=== PATIENT | female | born 1965 | race American Indian/Alaskan Native ===

== ENCOUNTER 2020-03-25 11:14 | Inpatient (IN) | payer BC, OTHER ==
[2020-03-25] MEDS ORDERED: Metoclopramide 10 MG/2 ML SDV IVPUSH ONE (11:35)
[2020-03-25] MEDS ORDERED: Sodium Chloride 0.9% 1,000 ML IV ONE ×2 (11:35→18:17)
[2020-03-25] MEDS ORDERED: fentaNYL 100 MCG/2 ML SDV IVPUSH ONE ×2 (11:35→13:40)
[2020-03-25] MEDS: Sodium Chloride 0.9% 10 ML Syringe FLUSH PRN ×4 (11:41→23:56)
[2020-03-25 12:17] LABS: ANION GAP 17.2 mEq/L (7-13); CHLORIDE,CL 100 mmol/L (98-107); SODIUM,NA 140 mmol/L (136-145)
[2020-03-25] MEDS ORDERED: Iopamidol 612 MG/ML 100 ML Bottle IVPUSH ONE (12:28)
--- NOTE | 2020-03-25 12:37 | EDM.PDOC ---
ED HPI GENERAL MEDICAL PROBLEM - General Chief Complaint: Abdominal Pain Stated Complaint: ABDOMINAL PAIN Time Seen by Provider: 03/25/20 11:50 Source of Information: Reports: Patient, Family, RN, RN Notes Reviewed History Limitations: Reports: No Limitations - History of Present Illness INITIAL COMMENTS - FREE TEXT/NARRATIVE: Patient presents to ER with complaint of abdominal pain. Patient states she had right knee surgery on March 13, and has not had a good bowel movement since before the surgery date. Patient states she also has not eaten very well since the date of surgery, takes in more liquids. Patient states she has been up and ambulating around, but has been using opioids for pain control. Admits to fever and chills that began yesterday, nausea and vomiting that began this morning. Patient states the abdominal pain began the end of last week and has progressively gotten worse. Has used oijp-let-gobifte enemas with no results. Onset: Gradual Bilateral Lower Abdomen Pain Score (Numeric/FACES): 10 - Related Data Allergies Allergy/AdvReac Type Severity Reaction Status Date / Time codeine Allergy Nausea and Verified 03/25/20 14:54 Vomiting Home Meds: Home Meds traMADol HCl [Tramadol HCl] 1 tab PO Q8HR PRN 01/29/16 [History] Acetaminophen [Tylenol Extra Strength] 500 mg PO Q6HR PRN 03/25/20 [History] Aspirin [Christian Chewable] 81 mg PO DAILY 03/25/20 [History] Celecoxib 200 mg PO DAILY 03/25/20 [History] Ergocalciferol (Vitamin D2) [Vitamin D2] 50 mcg PO DAILY 03/25/20 [History] Pregabalin 150 mg PO DAILY 03/25/20 [History] Sennosides/Docusate Sodium [Docusate Sodium-Sennosides Tab] 1 each PO BID [History] oxyCODONE 5 mg PO TID PRN 03/25/20 [History] Past Medical History HEENT History: Reports: None Cardiovascular History: Reports: Other (See Below) Other Cardiovascular History: Borderline high blood pressure. 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 Open Reduc-ankle dislocation. Carpal tunnel release Neurological History: Reports: None Psychiatric History: Reports: None Endocrine/Metabolic History: Reports: Obesity/BMI 30+, Other (See Below) Other Endocrine/Metabolic History: Impaired fasting glucose Hematologic History: Reports: None Immunologic History: Reports: None Oncologic (Cancer) History: Reports: None Dermatologic History: Reports: None - Infectious Disease History Infectious Disease History: Reports: Other (See Below) Other Infectious Disease History: SOME KIND OF HEPATITIS - Past Surgical History GI Surgical History: Reports: Cholecystectomy, Colonoscopy, Other (See Below) ED ROS GENERAL - Review of Systems Review Of Systems: Comprehensive ROS is negative, except as noted in HPI. ED EXAM, GI/ABD - Physical Exam Exam: See Below Exam Limited By: No Limitations General Appearance: Alert, WD/WN, Moderate Distress Eyes: Bilateral: Normal Appearance, EOMI Ears: Normal External Exam, Hearing Grossly Normal Nose: Normal Inspection Throat/Mouth: Normal Inspection, Normal Voice, No Airway Compromise, Other (dry mucous membranes) Head: Atraumatic, Normocephalic Neck: Normal Inspection, Supple, Non-Tender, Full Range of Motion Respiratory/Chest: No Respiratory Distress, Lungs Clear, Normal Breath Sounds, No Accessory Muscle Use, Chest Non-Tender Cardiovascular: Normal Peripheral Pulses, Regular Rate, Rhythm, No Edema, No Gallop, No JVD, No Murmur, No Rub GI/Abdominal Exam: Soft, Distended, Tender, Abnormal Bowel Sounds (hypoactive) (Female) Exam: Deferred Rectal (Female) Exam: Deferred Back Exam: Normal Inspection, Full Range of Motion, NT Extremities: Normal Inspection, Normal Range of Motion, No Pedal Edema, Normal Capillary Refill, Leg Pain (right knee, recent replacement), Limited Range of Motion (right knee) Neurological: Alert, Oriented, CN II-XII Intact, Normal Cognition, Normal Gait, Normal Reflexes, No Motor/Sensory Deficits Psychiatric: Normal Affect, Normal Mood Skin Exam: Warm, Dry, Intact, Normal Color, No Rash, Wound/Incision (Right knee , wound covered with dressing that is not to be changed until next Tuesday, no drainage outside the dressing) Lymphatic: No Adenopathy Course - Vital Signs Last Recorded V/S: Last Vital Signs Temp 97.9 F 03/25/20 13:50 Pulse 74 03/25/20 13:50 Resp 16 03/25/20 13:50 BP 120/68 03/25/20 13:50 Pulse Ox 99 03/25/20 13:50 - Orders/Labs/Meds Orders: Active Orders 24 hr Category Date Time Status Peripheral IV Care [RC] . DIRECTED Care 03/25/20 11:35 Active CULTURE BLOOD [BC] Stat Lab 03/25/20 11:39 Received CULTURE BLOOD [BC] Stat Lab 03/25/20 12:13 Received REFLEX LACTIC ACID YES OR NO [CHEM] Routine Lab 03/25/20 12:23 Received UA RFX JEREMY AND CULT IF INDIC [URIN] Stat Lab 03/25/20 11:35 Ordered Sodium Chloride 0.9% [Normal Saline] 1,000 ml Med 03/25/20 13:45 Active IV ASDIRECTED Sodium Chloride 0.9% [Saline Flush] Med 03/25/20 11:35 Active 10 ml FLUSH ASDIRECTED PRN Blood Culture x2 Reflex Set [OM.PC] Stat Oth 03/25/20 11:34 Ordered Peripheral IV Insertion Adult [OM.PC] Stat Oth 03/25/20 11:34 Ordered Medication Orders Sodium Chloride (Normal Saline) 1,000 mls @ 300 mls/hr IV ASDIRECTED DELANEY Last Admin: 03/25/20 13:36 Dose: 300 mls/hr Sodium Chloride (Saline Flush) 10 ml FLUSH ASDIRECTED PRN PRN Reason: Keep Vein Open Last Admin: 03/25/20 11:41 Dose: 10 ml Labs: Laboratory Tests 03/25/20 03/25/20 03/25/20 Range/Units 11:39 11:39 11:39 WBC 29.4 H* (5.0-10.0) 10^3/uL RBC 4.39 (4.2-5.4) 10^6/uL Hgb 13.9 (12.0-16.0) g/dL Hct 40.4 (37.0-47.0) % MCV 92.0 (80-100) fL MCH 31.7 (27.0-34.0) pg MCHC 34.4 (33.0-35.0) g/dL Plt Count 547 H (150-450) 10^3/uL Neut % (Auto) 93.0 H (42.2-75.2) % Lymph % (Auto) 2.9 L (20.5-50.1) % [place] % (Auto) 3.9 (2-8) % Eos % (Auto) 0.0 L (1.0-3.0) % Baso % (Auto) 0.2 (0.0-1.0) % Sodium 140 (136-145) mmol/L Potassium 3.2 L (3.5-5.1) mmol/L Chloride 100 (98-107) mmol/L Carbon Dioxide 26 (21-32) mmol/L Anion Gap 17.2 H (7-13) mEq/L BUN 10 (7-18) mg/dL Creatinine 0.83 (0.55-1.02) mg/dL Est Cr Clr Drug Dosing 91.16 mL/min Estimated GFR (MDRD) > 60 BUN/Creatinine Ratio 12.0 (No establ ref range) Glucose 167 H (74-99) mg/dL Lactic Acid 2.5 H* (0.4-2.0) mmol/L Calcium 9.5 (8.5-10.1) mg/dL Total Bilirubin 2.5 H (0.2-1.0) mg/dL AST 20 (15-37) U/L ALT 28 (14-59) U/L Alkaline Phosphatase 109 (46-116) U/L Total Protein 7.4 (6.4-8.2) g/dL Albumin 3.6 (3.4-5.0) g/dL Globulin 3.8 Albumin/Globulin Ratio 0.9 Meds: Medications Generic Name Dose Route Start Last Admin Trade Name Freq PRN Reason Stop Dose Admin Sodium Chloride 1,000 mls @ 300 mls/hr 03/25/20 13:45 03/25/20 13:36 Normal Saline IV 300 mls/hr ASDIRECTED DELANEY Administration Sodium Chloride 10 ml 03/25/20 11:35 03/25/20 11:41 Saline Flush FLUSH 10 ml ASDIRECTED PRN Administration Keep Vein Open Discontinued Medications Generic Name Dose Route Start Last Admin Trade Name Freq PRN Reason Stop Dose Admin Fentanyl 100 mcg 03/25/20 11:35 03/25/20 11:45 Sublimaze IVPUSH 03/25/20 11:36 100 mcg ONETIME ONE Administration Fentanyl 100 mcg 03/25/20 13:40 03/25/20 13:48 Sublimaze IVPUSH 03/25/20 13:41 100 mcg ONETIME ONE Administration Sodium Chloride 1,000 mls @ 999 mls/hr 03/25/20 11:35 03/25/20 11:40 Normal Saline IV 03/25/20 12:35 999 mls/hr .BOLUS ONE Administration Piperacillin Sod/Tazobactam 100 mls @ 200 mls/hr 03/25/20 13:18 03/25/20 13: 34 Sod 3.375 gm/ Sodium Chloride IV 03/25/20 13:47 200 mls/hr ONETIME ONE Administration Iopamidol 100 ml 03/25/20 12:28 03/25/20 13:01 Isovue-300 (61%) IVPUSH 03/25/20 12:29 100 ml ONETIME ONE Administration Methylnaltrexone [place] 12 mg 03/25/20 13:51 03/25/20 14:13 Relistor SUBCUT 03/25/20 13:52 12 mg ONETIME ONE Administration Metoclopramide HCl 10 mg 03/25/20 11:35 03/25/20 11:45 Reglan IVPUSH 03/25/20 11:36 10 mg ONETIME ONE Administration - Radiology Interpretation Free Text/Narrative:: CT Abdomen/Pelvis with contrast: 1. Abnormal pericolonic inflammatory dirty peritoneal fat left lower quadrant associated with sigmoid diverticulitis. Minimal stool proximally in the distal descending left colon, there is large volume of fluid throughout the remaining proximal colon, no air-fluid levels. Suggest severe generalized ileus rather than mechanical bowel obstruction at this time. No inflammatory mass or abscess LLQ. 2. Surgical ring around the gastroesophageal juncture LUQ and intraperitoneal tube coursing to the subcutaneous pump, adjacent to the umbilicus, on the right. 3. No ascites or free intraperitoneal air. 4. Liver, stomach, spleen, pancreas, adrenal glands, and kidneys anatomically correct and unremarkable. 5. Normal caliber aortoiliac vessels. Osteopenia and hypertrophic marginal spondylosis spine. 6. No abdominal or pelvic mass lesion. No mesenteric or retroperitoneal lymphadenopathy. 7. Lung bases clear. Normal caliber abdominal aorta. No aneurysm or dissection. Occlusion: Acute sigmoid diverticulitis. See rad report - Re-Assessments/Exams Free Text/Narrative Re-Assessment/Exam: 03/25/20 13:55 Discussed patient case with Dr. Garza who agreed to admit the patient for acute inpatient admission. Departure - Departure Time of Disposition: 13:55 Disposition: Admitted As Inpatient 66 Condition: Fair Clinical Impression: Acute diverticulitis of intestine - Discharge Information *PRESCRIPTION DRUG MONITORING PROGRAM REVIEWED*: No *COPY OF PRESCRIPTION DRUG MONITORING REPORT IN PATIENT SHE[place]: No Sepsis Event Note (ED) - Evaluation Sepsis Screening Result: No Definite Risk - Focused Exam Vital Signs: Vital Signs Temp Pulse Resp BP Pulse Ox 03/25/20 13:50 97.9 F 74 16 120/68 99 03/25/20 12:30 97.8 F 75 18 119/65 99 03/25/20 11:47 96.7 F L 67 18 168/80 H 99 - My Orders Last 24 Hours: My Active Orders 03/25/20 11:34 Blood Culture x2 Reflex Set [OM.PC] Stat Peripheral IV Insertion Adult [OM.PC] Stat 03/25/20 11:35 Peripheral IV Care [RC] . DIRECTED UA RFX JEREMY AND CULT IF INDIC [URIN] Stat Sodium Chloride 0.9% [Saline Flush] 10 ml FLUSH ASDIRECTED PRN 03/25/20 11:39 CULTURE BLOOD [BC] Stat 03/25/20 12:13 CULTURE BLOOD [BC] Stat 03/25/20 12:23 REFLEX LACTIC ACID YES OR NO [CHEM] Routine 03/25/20 13:45 Sodium Chloride 0.9% [Normal Saline] 1,000 ml IV ASDIRECTED - Assessment/Plan Last 24 Hours: My Active Orders 03/25/20 11:34 Blood Culture x2 Reflex Set [OM.PC] Stat Peripheral IV Insertion Adult [OM.PC] Stat 03/25/20 11:35 Peripheral IV Care [RC] . DIRECTED UA RFX JEREMY AND CULT IF INDIC [URIN] Stat Sodium Chloride 0.9% [Saline Flush] 10 ml FLUSH ASDIRECTED PRN 03/25/20 11:39 CULTURE BLOOD [BC] Stat 03/25/20 12:13 CULTURE BLOOD [BC] Stat 03/25/20 12:23 REFLEX LACTIC ACID YES OR NO [CHEM] Routine 03/25/20 13:45 Sodium Chloride 0.9% [Normal Saline] 1,000 ml IV ASDIRECTED
[2020-03-25] MEDS ORDERED: Piperacillin/Tazobactam 3.375 GM in Sodium Chloride 0.9% 100 ML IV ONE (13:18)
--- NOTE | 2020-03-25 13:33 | CT ---
EXAMINATION: Abdomen Pelvis w Cont SEX: Female AGE: 55 years CLINICAL HISTORY: 55-year-old 268 pound female smoker with clinical question of bowel obstruction.? Previous bariatric surgery, cholecystectomy and recent knee surgery. Yesterday fever/chills and this morning nausea/vomiting this patient with abnormal elevated white blood cell count (WBC 29,400), lactic acid 2.9 and abdominal pain. Scan technique: Volume acquisition of data emergency unenhanced CT scan of the abdomen and pelvis obtained without oral contrast but during intravenous administration 100 cc nonionic Isovue contrast at 3 cc/s via injector while patient was lying supine on the Siemens multislice scanner [place], [place]. All data archived in the PACS system for storage, reformatting axial/sagittal/coronal planes and study. Interpretation: Abnormal. Acute SIGMOID DIVERTICULITIS with accompanying generalized ileus. 1. *Abnormal pericolonic inflammatory "dirty" peritoneal fat left lower quadrant associated with sigmoid diverticulitis. Minimal stool proximally in the distal descending left colon there is large volume of fluid throughout the remaining proximal colon (no air-fluid levels). Suggest severe generalized ileus rather than mechanical bowel obstruction at this time. No inflammatory mass or abscess LLQ. 2. Surgical ring around the gastroesophageal juncture LUQ and intraperitoneal tube coursing to the subcutaneous "pump", adjacent to the umbilicus, on the right. 3. No ascites or free intraperitoneal air. 4. Liver, stomach, spleen, pancreas, adrenal glands and kidneys anatomically correct i.e. unremarkable. 5. Normal caliber aortoiliac vessels. Osteopenia and hypertrophic marginal spondylosis spine. 6. No abdominal or pelvic mass lesion. No mesenteric or retroperitoneal lymphadenopathy. 7. Lung bases clear. Normal caliber abdominal aorta. No aneurysm or dissection. CONCLUSION: Acute sigmoid diverticulitis.
[2020-03-25] MEDS ORDERED: Sodium Chloride 0.9% 1,000 ML IV SCH (13:45)
[2020-03-25] MEDS ORDERED: Methylnaltrexone 12 MG/0.6 ML SDV SUBCUT ONE (13:51)
[2020-03-25] MEDS ORDERED: Acetaminophen 500 MG Tab PO PRN (15:07)
--- NOTE | 2020-03-25 15:14 | PCM.HP ---
H&P History of Present Illness - General Date of Service: 03/25/20 Admit Problem/Dx: Admission Diagnosis/Problem Admission Diagnosis/Problem Acute diverticulitis of intestine Source of Information: Patient, Family, Provider - History of Present Illness Initial Comments - Free Text/Narative: Patient is a 55-year-old female with medical history significant for morbid obesity status post lap band, osteoarthritis status post knee replacement surgeries, prior history of impaired fasting glucose, borderline high blood pressure who presented to the ED with complaints of abdominal pain. Patient reports that she had right knee surgery on March 13 and has been on pain medications from the time. States that she has not had a bowel movement since before the surgery. Reports that on Tuesday and Tuesday she took an enema and had bowel movements. called the nurse line and was instructed to purchase magnesium citrate. States that she took the medications but has not been able to have a bowel movement. Reports nonbilious and nonbloody emesis this morning. Has had 3 episodes of emesis overall since her pain started on Tuesday. Reports the pain is constant, sharp, and located in the lower abdominal quadrant. Denies radiation. She reports shaking chills and cold sweats, and right knee swelling secondary to surgery. Denies any abdominal trauma. She denies chest pain, shortness of breath, dysuria, hematuria, headache, vision changes, or any new symptoms. Bilateral Lower Abdomen Pain Score (Numeric/FACES): 10 - Related Data Allergies/Adverse Reactions: Allergies Allergy/AdvReac Type Severity Reaction Status Date / Time codeine Allergy Nausea and Verified 03/25/20 14:54 Vomiting Home Medications: Home Meds traMADol HCl [Tramadol HCl] 1 tab PO Q8HR PRN 01/29/16 [History] Acetaminophen [Tylenol Extra Strength] 500 mg PO Q6HR PRN 03/25/20 [History] Aspirin [Christian Chewable] 81 mg PO DAILY 03/25/20 [History] Celecoxib 200 mg PO DAILY 03/25/20 [History] Ergocalciferol (Vitamin D2) [Vitamin D2] 50 mcg PO DAILY 03/25/20 [History] Ondansetron [Zofran] 8 mg PO Q8H PRN 03/25/20 [History] Pregabalin 150 mg PO DAILY 03/25/20 [History] Sennosides/Docusate Sodium [Docusate Sodium-Sennosides Tab] 1 each PO BID [History] oxyCODONE 5 mg PO TID PRN 03/25/20 [History] Past Medical History HEENT History: Reports: None Cardiovascular History: Reports: Other (See Below) Other Cardiovascular History: Borderline high blood pressure. 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 Open Reduc-ankle dislocation. Carpal tunnel release Neurological History: Reports: None Psychiatric History: Reports: None Endocrine/Metabolic History: Reports: Obesity/BMI 30+, Other (See Below) Other Endocrine/Metabolic History: Impaired fasting glucose Hematologic History: Reports: None Immunologic History: Reports: None Oncologic (Cancer) History: Reports: None Dermatologic History: Reports: None - Infectious Disease History Infectious Disease History: Reports: Other (See Below) Other Infectious Disease History: SOME KIND OF HEPATITIS - Past Surgical History GI Surgical History: Reports: Cholecystectomy, Colonoscopy, Other (See Below) Social & Family History - Family History Family Medical History: Noncontributory - Tobacco Use Smoking Status *Q: Current Every Day Smoker Years of Tobacco use: 40 Packs/Tins Daily: 0.5 Used Tobacco, but Quit: No - Caffeine Use Caffeine Use: Reports: None - Recreational Drug Use Recreational Drug Use: No H&P Review of Systems - Review of Systems: Review Of Systems: Comprehensive ROS is negative, except as noted in HPI. Exam - Exam Exam: See Below - Vital Signs Vital Signs: Last Vital Signs Temp 97.9 F 03/25/20 13:50 Pulse 74 03/25/20 13:50 Resp 16 03/25/20 13:50 BP 120/68 03/25/20 13:50 Pulse Ox 99 03/25/20 13:50 Weight: 267 lb 12.8 oz - Exam General: Alert, Oriented, Cooperative, Severe Distress HEENT: Conjunctiva Clear, EOMI Neck: Supple, Trachea Midline Lungs: Clear to Auscultation, Normal Respiratory Effort Cardiovascular: Regular Rhythm, Tachycardia GI/Abdominal Exam: Tender (in the mid to left lower abdominal quadrant. ) Extremities: Normal Inspection, Normal Range of Motion, Non-Tender, No Pedal Edema Skin: Warm, Dry, Intact Neuro Extensive - Mental Status: Alert, Oriented x3, Normal Mood/Affect Psychiatric: Alert, Normal Affect, Normal Mood - Patient Data Lab Results Last 24 hrs: Laboratory Results - last 24 hr 03/25/20 03/25/20 03/25/20 Range/Units 11:39 11:39 11:39 WBC 29.4 H* (5.0-10.0) 10^3/uL RBC 4.39 (4.2-5.4) 10^6/uL Hgb 13.9 (12.0-16.0) g/dL Hct 40.4 (37.0-47.0) % MCV 92.0 (80-100) fL MCH 31.7 (27.0-34.0) pg MCHC 34.4 (33.0-35.0) g/dL Plt Count 547 H (150-450) 10^3/uL Neut % (Auto) 93.0 H (42.2-75.2) % Lymph % (Auto) 2.9 L (20.5-50.1) % [place] % (Auto) 3.9 (2-8) % Eos % (Auto) 0.0 L (1.0-3.0) % Baso % (Auto) 0.2 (0.0-1.0) % Sodium 140 (136-145) mmol/L Potassium 3.2 L (3.5-5.1) mmol/L Chloride 100 (98-107) mmol/L Carbon Dioxide 26 (21-32) mmol/L Anion Gap 17.2 H (7-13) mEq/L BUN 10 (7-18) mg/dL Creatinine 0.83 (0.55-1.02) mg/dL Est Cr Clr Drug Dosing 91.16 mL/min Estimated GFR (MDRD) > 60 BUN/Creatinine Ratio 12.0 (No establ ref range) Glucose 167 H (74-99) mg/dL Lactic Acid 2.5 H* (0.4-2.0) mmol/L Calcium 9.5 (8.5-10.1) mg/dL Total Bilirubin 2.5 H (0.2-1.0) mg/dL AST 20 (15-37) U/L ALT 28 (14-59) U/L Alkaline Phosphatase 109 (46-116) U/L Total Protein 7.4 (6.4-8.2) g/dL Albumin 3.6 (3.4-5.0) g/dL Globulin 3.8 Albumin/Globulin Ratio 0.9 Result Diagrams: 03/25/20 11:39 03/25/20 11:39 - Problem List (1) Ileus SNOMED Code(s): 315353923 ICD Code: K56.7 - ILEUS, UNSPECIFIED Status: Acute Current Visit: Yes (2) Hypokalemia SNOMED Code(s): 75611952 ICD Code: E87.6 - HYPOKALEMIA Status: Acute Current Visit: Yes (3) Sepsis SNOMED Code(s): 99108664 ICD Code: A41.9 - SEPSIS, UNSPECIFIED ORGANISM Status: Acute Current Visit: Yes (4) Lactic acidosis SNOMED Code(s): 45534990 ICD Code: E87.2 - ACIDOSIS Status: Acute Current Visit: Yes (5) Acute diverticulitis of intestine SNOMED Code(s): 365613056 ICD Code: K57.92 - DVTRCLI OF INTEST, PART UNSP, W/O PERF OR ABSCESS W/O BLEED Status: Acute Current Visit: No Problem List Initiated/Reviewed/Updated: Yes Orders Last 24hrs: Active Orders 24 hr Category Date Time Status Admission Diagnosis [ADT] Stat ADT 03/25/20 13:51 Ordered Patient Status [ADT] Routine ADT 03/25/20 13:51 Active Ambulate [RC] ASDIRECTED Care 03/25/20 15:00 Active Intake and Output [RC] QSHIFT Care 03/25/20 15:01 Active Oxygen Therapy [RC] PRN Care 03/25/20 15:00 Active Peripheral IV Care [RC] . DIRECTED Care 03/25/20 11:35 Active VTE/DVT Education [RC] PER UNIT ROUTINE Care 03/25/20 15:00 Active Vital Signs [RC] Q4H Care 03/25/20 15:00 Active Nothing per Oral Now Diet [DIET] Diet 03/25/20 Lunch Active BASIC METABOLIC PANEL,BMP [CHEM] AM Lab 03/26/20 05:11 Ordered CBC W/O DIFF,HEMOGRAM [HEME] AM Lab 03/26/20 05:11 Ordered CULTURE BLOOD [BC] Stat Lab 03/25/20 11:39 Received CULTURE BLOOD [BC] Stat Lab 03/25/20 12:13 Received HEPATIC FUNCTION PANEL,HFP [CHEM] AM Lab 03/26/20 05:11 Ordered LACTIC ACID [CHEM] Q4H Lab 03/25/20 17:00 Ordered LACTIC ACID [CHEM] Q4H Lab 03/25/20 21:00 Ordered MAGNESIUM [CHEM] AM Lab 03/26/20 05:11 Ordered PHOSPHORUS [CHEM] AM Lab 03/26/20 05:11 Ordered REFLEX LACTIC ACID YES OR NO [CHEM] Routine Lab 03/25/20 12:23 Received UA RFX JEREMY AND CULT IF INDIC [URIN] Stat Lab 03/25/20 11:35 Ordered Acetaminophen [Tylenol Extra Strength] Med 03/25/20 15:07 Ordered 500 mg PO Q6HR PRN Acetaminophen [Tylenol] Med 03/25/20 15:00 Ordered 650 mg PO Q4H PRN Aspirin Med 03/26/20 09:00 Ordered 81 mg PO DAILY Docusate Sodium/Sennosides [Senna Plus] Med 03/25/20 21:00 Ordered 1 tab PO BEDTIME Ergocalciferol (Vitamin D2) [Vitamin D2] Med 03/26/20 09:00 Ordered 50 mcg PO DAILY Heparin Sodium Med 03/25/20 22:00 Ordered 5,000 units SUBCUT Q8HR Morphine Sulfate [Morphine] Med 03/25/20 15:00 Ordered 2 mg IVPUSH Q4H PRN Ondansetron [Zofran ODT] Med 03/25/20 15:00 Ordered 4 mg PO Q6H PRN Ondansetron [Zofran] Med 03/25/20 15:00 Ordered 4 mg IVPUSH Q6H PRN Piperacillin/Tazobactam [Zosyn] 3.375 gm Med 03/25/20 15:00 Ordered Sodium Chloride 0.9% [Normal Saline] 100 ml IV Q6H Pregabalin [Lyrica] Med 03/26/20 09:00 Ordered 150 mg PO DAILY Sodium Chloride 0.9% [Normal Saline] 1,000 ml Med 03/25/20 13:45 Active IV ASDIRECTED Sodium Chloride 0.9% [Normal Saline] 1,000 ml Med 03/25/20 15:00 Ordered IV ASDIRECTED Sodium Chloride 0.9% [Saline Flush] Med 03/25/20 11:35 Active 10 ml FLUSH ASDIRECTED PRN fentaNYL [Duragesic] Med 03/25/20 15:00 Ordered 50 mcg TRDERM Q72H Blood Culture x2 Reflex Set [OM.PC] Stat Ot 03/25/20 11:34 Ordered Peripheral IV Insertion Adult [OM.PC] Stat Oth 03/25/20 11:34 Ordered Resuscitation Status Routine Resus Stat 03/25/20 15:00 Ordered Medication Orders Acetaminophen (Tylenol) 650 mg PO Q4H PRN PRN Reason: Pain (Mild 1-3)/fever Acetaminophen (Tylenol Extra Strength) 500 mg PO Q6HR PRN PRN Reason: Pain Aspirin (Aspirin) 81 mg PO DAILY [facility] Fentanyl (Duragesic) 50 mcg TRDERM Q72H DELANEY Heparin Sodium (Porcine) (Heparin Sodium) 5,000 units SUBCUT Q8HR [facility] Sodium Chloride (Normal Saline) 1,000 mls @ 300 mls/hr IV ASDIRECTED [facility] Last Admin: 03/25/20 13:36 Dose: 300 mls/hr Piperacillin Sod/Tazobactam (Sod 3.375 gm/ Sodium Chloride) 100 mls @ 200 mls/ hr IV Q6H [facility] Sodium Chloride (Normal Saline) 1,000 mls @ 100 mls/hr IV ASDIRECTED [facility] Morphine Sulfate (Morphine) 2 mg IVPUSH Q4H PRN PRN Reason: Other Non-Formulary Medication (Ergocalciferol (Vitamin D2) [Vitamin D2]) 50 mcg PO DAILY [facility] Ondansetron HCl (Zofran) 4 mg IVPUSH Q6H PRN PRN Reason: Nausea/Vomiting Ondansetron HCl (Zofran Odt) 4 mg PO Q6H PRN PRN Reason: nausea, able to take PO Pregabalin (Lyrica) 150 mg PO DAILY [facility] Senna/Docusate Sodium (Senna Plus) 1 tab PO BEDTIME [facility] Sodium Chloride (Saline Flush) 10 ml FLUSH ASDIRECTED PRN PRN Reason: Keep Vein Open Last Admin: 03/25/20 11:41 Dose: 10 ml Assessment/Plan Comment:: #Sepsis due to diverticulitis: Qualifies with hypothermia and leukocytosis #Acute diverticulitis patient with abdominal pain. CT abdomen showing sigmoid diverticulitis. No mention of perforation or abscess. IV fluids Continue Zosyn N.p.o. Fentanyl patch and as needed morphine for breakthrough pain. Follow-up on blood cultures #Severe ileus: Patient with CT findings suggestive of severe generalized ileus rather than mechanical bowel obstruction. Reports poor bowel movements. No bowel sounds on examreceived one-time dose of Relistor in the ED Start scheduled bowel regimen IV fluids Encourage ambulation #Lactic acidosis: Lactic acid of 2.5 IV fluids Trend lactic acid levels #Hypokalemia: Potassium of 3.2 IV potassium replacement Monitor replace electrolytes #DVT prophylaxis: Heparin #GI prophylaxis: Protonix CODE STATUS: Full code per patient preference.
[2020-03-25] MEDS: fentaNYL 50 MCG/HR Transdermal Patch TRDERM SCH (15:48)
[2020-03-25] MEDS: Sodium Chloride 0.9% 1,000 ML IV SCH (15:49)
[2020-03-25] MEDS: Piperacillin/Tazobactam 3.375 GM in Sodium Chloride 0.9% 100 ML IV SCH ×2 (16:13→23:57)
[2020-03-25] MEDS: Potassium Chloride 10 MEQ in Premix Bag 1 BAG IV SCH ×4 (16:20→22:25)
[2020-03-25] MEDS: Morphine 2 MG/ML Syringe IVPUSH PRN (21:01)
[2020-03-25] MEDS: Heparin Sodium 5,000 Units/ML Vial SUBCUT SCH (21:12)
[2020-03-25] MEDS ORDERED: Potassium Chloride 10 MEQ in Premix Bag 1 BAG IV SCH (23:00)
[2020-03-26] MEDS: Acetaminophen 325 MG Tab PO PRN ×2 (00:18→11:54)
[2020-03-26 08:07] LABS: CHLORIDE,CL 101 mmol/L (98-107); SODIUM,NA 136 mmol/L (136-145)
[2020-03-26] MEDS: Heparin Sodium 5,000 Units/ML Vial SUBCUT SCH ×3 (08:16→21:22)
[2020-03-26] MEDS: Piperacillin/Tazobactam 3.375 GM in Sodium Chloride 0.9% 100 ML IV SCH ×3 (08:16→17:31)
[2020-03-26] MEDS: Aspirin 81 MG Tab.Chew PO SCH (08:21)
[2020-03-26] MEDS: Ergocalciferol (Vitamin D2) 1.25 MG Cap PO SCH (08:21)
[2020-03-26] MEDS: Ondansetron 4 MG/2 ML SDV IVPUSH PRN ×2 (08:21→17:31)
[2020-03-26] MEDS: Morphine 2 MG/ML Syringe IVPUSH PRN ×3 (08:22→19:53)
[2020-03-26] MEDS ORDERED: Loperamide 2 MG Cap PO PRN (10:06)
--- NOTE | 2020-03-26 10:28 | PCM.PN ---
- General Info Date of Service: 03/26/20 Subjective Update: Patient still has some abdominal pain. Intensity has improved compared to yesterday. Associated nausea but no vomiting. Complains of having diarrhea. Has had frequent diarrhea since admission. No diarrhea prior to admission - Review of Systems General: Reports: Malaise Pulmonary: Reports: No Symptoms Cardiovascular: Reports: No Symptoms Gastrointestinal: Reports: Abdominal Pain Genitourinary: Reports: No Symptoms - Patient Data Vitals - Most Recent: Last Vital Signs Temp 36.8 C 03/26/20 08:00 Pulse 85 03/26/20 08:00 Resp 03/26/20 08:00 BP 129/70 03/26/20 08:00 Pulse Ox 95 03/26/20 08:00 Weight - Most Recent: 123.831 kg I&O - Last 24 Hours: Intake & Output 03/25/20 03/26/20 03/26/20 22:59 06:59 14:59 Intake Total 1306 193 Balance 1306 193 Lab Results Last 24 Hours: Laboratory Results - last 24 hr 03/25/20 03/25/20 03/25/20 Range/Units 11:39 11:39 11:39 WBC 29.4 H* (5.0-10.0) 10^3/uL RBC 4.39 (4.2-5.4) 10^6/uL Hgb 13.9 (12.0-16.0) g/dL Hct 40.4 (37.0-47.0) % MCV 92.0 (80-100) fL MCH 31.7 (27.0-34.0) pg MCHC 34.4 (33.0-35.0) g/dL Plt Count 547 H (150-450) 10^3/uL Neut % (Auto) 93.0 H (42.2-75.2) % Lymph % (Auto) 2.9 L (20.5-50.1) % [place] % (Auto) 3.9 (2-8) % Eos % (Auto) 0.0 L (1.0-3.0) % Baso % (Auto) 0.2 (0.0-1.0) % Sodium 140 (136-145) mmol/L Potassium 3.2 L (3.5-5.1) mmol/L Chloride 100 (98-107) mmol/L Carbon Dioxide 26 (21-32) mmol/L Anion Gap 17.2 H (7-13) mEq/L BUN 10 (7-18) mg/dL Creatinine 0.83 (0.55-1.02) mg/dL Est Cr Clr Drug Dosing 91.16 mL/min Estimated GFR (MDRD) > 60 BUN/Creatinine Ratio 12.0 (No establ ref range) Glucose 167 H (74-99) mg/dL Lactic Acid 2.5 H* (0.4-2.0) mmol/L Calcium 9.5 (8.5-10.1) mg/dL Phosphorus (2.6-4.7) mg/dL Magnesium (1.8-2.4) mg/dL Total Bilirubin 2.5 H (0.2-1.0) mg/dL Direct Bilirubin (0.0-0.2) mg/dL Indirect Bilirubin AST 20 (15-37) U/L ALT 28 (14-59) U/L Alkaline Phosphatase 109 (46-116) U/L Total Protein 7.4 (6.4-8.2) g/dL Albumin 3.6 (3.4-5.0) g/dL Globulin 3.8 Albumin/Globulin Ratio 0.9 Urine Color (YELLOW) Urine Appearance (CLEAR) Urine pH (5.0-9.0) Ur Specific [place] (1.005-1.030) Urine Protein (NEGATIVE) Urine Glucose (UA) (NEGATIVE) Urine Ketones (NEGATIVE) Urine Occult Blood (NEGATIVE) Urine Nitrite (NEGATIVE) Urine Bilirubin (NEGATIVE) Urine Urobilinogen (0.2-1.0) mg/dL Ur Leukocyte Esterase (NEGATIVE) Urine RBC /HPF Urine WBC (0-5/HPF) /HPF Ur Epithelial Cells (NOT SEEN) /HPF Amorphous Sediment (NOT SEEN) /HPF Urine Bacteria (0-FEW/HPF) /HPF Urine Mucus (NOT SEEN) /LPF Urinalysis Comment 03/25/20 03/25/20 03/26/20 Range/Units 17:05 20:05 00:19 WBC (5.0-10.0) 10^3/uL RBC (4.2-5.4) 10^6/uL Hgb (12.0-16.0) g/dL Hct (37.0-47.0) % MCV (80-100) fL MCH (27.0-34.0) pg MCHC (33.0-35.0) g/dL Plt Count (150-450) 10^3/uL Neut % (Auto) (42.2-75.2) % Lymph % (Auto) (20.5-50.1) % [place] % (Auto) (2-8) % Eos % (Auto) (1.0-3.0) % Baso % (Auto) (0.0-1.0) % Sodium (136-145) mmol/L Potassium (3.5-5.1) mmol/L Chloride (98-107) mmol/L Carbon Dioxide (21-32) mmol/L Anion Gap (7-13) mEq/L BUN (7-18) mg/dL Creatinine (0.55-1.02) mg/dL Est Cr Clr Drug Dosing mL/min Estimated GFR (MDRD) BUN/Creatinine Ratio (No establ ref range) Glucose (74-99) mg/dL Lactic Acid 3.2 H* 2.9 H* 1.6 (0.4-2.0) mmol/L Calcium (8.5-10.1) mg/dL Phosphorus (2.6-4.7) mg/dL Magnesium (1.8-2.4) mg/dL Total Bilirubin (0.2-1.0) mg/dL Direct Bilirubin (0.0-0.2) mg/dL Indirect Bilirubin AST (15-37) U/L ALT (14-59) U/L Alkaline Phosphatase (46-116) U/L Total Protein (6.4-8.2) g/dL Albumin (3.4-5.0) g/dL Globulin Albumin/Globulin Ratio Urine Color (YELLOW) Urine Appearance (CLEAR) Urine pH (5.0-9.0) Ur Specific [place] (1.005-1.030) Urine Protein (NEGATIVE) Urine Glucose (UA) (NEGATIVE) Urine Ketones (NEGATIVE) Urine Occult Blood (NEGATIVE) Urine Nitrite (NEGATIVE) Urine Bilirubin (NEGATIVE) Urine Urobilinogen (0.2-1.0) mg/dL Ur Leukocyte Esterase (NEGATIVE) Urine RBC /HPF Urine WBC (0-5/HPF) /HPF Ur Epithelial Cells (NOT SEEN) /HPF Amorphous Sediment (NOT SEEN) /HPF Urine Bacteria (0-FEW/HPF) /HPF Urine Mucus (NOT SEEN) /LPF Urinalysis Comment 03/26/20 03/26/20 03/26/20 Range/Units 06:15 06:15 08:04 WBC 16.9 H (5.0-10.0) 10^3/uL RBC 3.87 L (4.2-5.4) 10^6/uL Hgb 12.2 D (12.0-16.0) g/dL Hct 35.7 L (37.0-47.0) % MCV 92.2 (80-100) fL MCH 31.5 (27.0-34.0) pg MCHC 34.2 (33.0-35.0) g/dL Plt Count 430 D (150-450) 10^3/uL Neut % (Auto) (42.2-75.2) % Lymph % (Auto) (20.5-50.1) % [place] % (Auto) (2-8) % Eos % (Auto) (1.0-3.0) % Baso % (Auto) (0.0-1.0) % Sodium 136 (136-145) mmol/L Potassium 4.0 (3.5-5.1) mmol/L Chloride 101 (98-107) mmol/L Carbon Dioxide 25 (21-32) mmol/L Anion Gap 14.0 H (7-13) mEq/L BUN 13 (7-18) mg/dL Creatinine 0.86 (0.55-1.02) mg/dL Est Cr Clr Drug Dosing 87.98 mL/min Estimated GFR (MDRD) > 60 BUN/Creatinine Ratio (No establ ref range) Glucose 99 (74-99) mg/dL Lactic Acid (0.4-2.0) mmol/L Calcium 8.2 L (8.5-10.1) mg/dL Phosphorus 3.5 (2.6-4.7) mg/dL Magnesium 2.0 (1.8-2.4) mg/dL Total Bilirubin 2.3 H (0.2-1.0) mg/dL Direct Bilirubin 0.8 H (0.0-0.2) mg/dL Indirect Bilirubin 1.5 AST 23 (15-37) U/L ALT 25 (14-59) U/L Alkaline Phosphatase 85 (46-116) U/L Total Protein 5.0 L (6.4-8.2) g/dL Albumin 2.5 L (3.4-5.0) g/dL Globulin 2.5 Albumin/Globulin Ratio 1.00 Urine Color [place] (YELLOW) Urine Appearance Slightly cloudy (CLEAR) Urine pH 5.0 (5.0-9.0) Ur Specific [place] >= 1.030 (1.005-1.030) Urine Protein 100 H (NEGATIVE) Urine Glucose (UA) Negative (NEGATIVE) Urine Ketones Trace H (NEGATIVE) Urine Occult Blood Trace-intact H (NEGATIVE) Urine Nitrite Negative (NEGATIVE) Urine Bilirubin Small H (NEGATIVE) Urine Urobilinogen 0.2 (0.2-1.0) mg/dL Ur Leukocyte Esterase Negative (NEGATIVE) Urine RBC 0-5 /HPF Urine WBC 0-5 (0-5/HPF) /HPF Ur Epithelial Cells Moderate H (NOT SEEN) /HPF Amorphous Sediment Moderate H (NOT SEEN) /HPF Urine Bacteria Few (0-FEW/HPF) /HPF Urine Mucus Occasional (NOT SEEN) /LPF Urinalysis Comment See note Med Orders - Current: Current Medications Acetaminophen (Tylenol) 650 mg PO Q4H PRN PRN Reason: Pain (Mild 1-3)/fever Last Admin: 03/26/20 00:18 Dose: 650 mg Documented by: Aspirin (Aspirin) 81 mg PO DAILY [facility] Last Admin: 03/26/20 08:21 Dose: 81 mg Documented by: Ergocalciferol (Vitamin D2) 1.25 mg PO DAILY [facility] Last Admin: 03/26/20 08:21 Dose: 1.25 mg Documented by: Fentanyl (Duragesic) 50 mcg TRDERM Q72H [facility] Last Admin: 03/25/20 15:48 Dose: 50 mcg Documented by: Heparin Sodium (Porcine) (Heparin Sodium) 5,000 units SUBCUT Q8HR [facility] Last Admin: 03/26/20 08:16 Dose: Not Given Documented by: Piperacillin Sod/Tazobactam (Sod 3.375 gm/ Sodium Chloride) 100 mls @ 200 mls/hr IV Q6HR [facility] Last Admin: 03/26/20 08:16 Dose: Not Given Documented by: Sodium Chloride (Normal Saline) 1,000 mls @ 100 mls/hr IV ASDIRECTED [facility] Last Admin: 03/25/20 15:49 Dose: 100 mls/hr Documented by: Loperamide HCl (Imodium) 2 mg PO Q6H PRN PRN Reason: Diarrhea Miscellaneous Information (Check Patch) 1 ea TRDERM Q12HR [facility] Last Admin: 03/26/20 08:21 Dose: Not Given Documented by: Miscellaneous Information (Remove Patch) 1 ea TRDERM Q72H [facility] Morphine Sulfate (Morphine) 2 mg IVPUSH Q4H PRN PRN Reason: Other Last Admin: 03/26/20 08:22 Dose: 2 mg Documented by: Ondansetron HCl (Zofran) 4 mg IVPUSH Q6H PRN PRN Reason: Nausea/Vomiting Last Admin: 03/26/20 08:21 Dose: 4 mg Documented by: Ondansetron HCl (Zofran Odt) 4 mg PO Q6H PRN PRN Reason: nausea, able to take PO Pregabalin (Lyrica) 150 mg PO BEDTIME [facility] Last Admin: 03/25/20 20:47 Dose: 150 mg Documented by: Senna/Docusate Sodium (Senna Plus) 1 tab PO BEDTIME [facility] Last Admin: 03/25/20 20:48 Dose: Not Given Documented by: Sodium Chloride (Saline Flush) 10 ml FLUSH ASDIRECTED PRN PRN Reason: Keep Vein Open Last Admin: 03/25/20 23:56 Dose: 10 ml Documented by: Discontinued Medications Fentanyl (Sublimaze) 100 mcg IVPUSH ONETIME ONE Stop: 03/25/20 11:36 Last Admin: 03/25/20 11:45 Dose: 100 mcg Documented by: Fentanyl (Sublimaze) 100 mcg IVPUSH ONETIME ONE Stop: 03/25/20 13:41 Last Admin: 03/25/20 13:48 Dose: 100 mcg Documented by: Sodium Chloride (Normal Saline) 1,000 mls @ 999 mls/hr IV .BOLUS ONE Stop: 03/25/20 12:35 Last Admin: 03/25/20 11:40 Dose: 999 mls/hr Documented by: Piperacillin Sod/Tazobactam (Sod 3.375 gm/ Sodium Chloride) 100 mls @ 200 mls/hr IV ONETIME ONE Stop: 03/25/20 13:47 Last Admin: 03/25/20 13:34 Dose: 200 mls/hr Documented by: Sodium Chloride (Normal Saline) 1,000 mls @ 300 mls/hr IV ASDIRECTED [facility] Last Admin: 03/25/20 13:36 Dose: 300 mls/hr Documented by: Potassium Chloride 10 meq/ (Premix) 100 mls @ 100 mls/hr IV Q1H [facility] Stop: 03/25/20 19:59 Last Infusion: 03/26/20 00:38 Dose: Infused Documented by: Sodium Chloride (Normal Saline) 1,000 mls @ 999 mls/hr IV .BOLUS ONE Stop: 03/25/20 19:17 Last Infusion: 03/25/20 21:16 Dose: Infused Documented by: Potassium Chloride 10 meq/ (Premix) 100 mls @ 100 mls/hr IV Q1H [facility] Stop: 03/25/20 23:59 Last Admin: 03/25/20 22:30 Dose: Not Given Documented by: Iopamidol (Isovue-300 (61%)) 100 ml IVPUSH ONETIME ONE Stop: 03/25/20 12:29 Last Admin: 03/25/20 13:01 Dose: 100 ml Documented by: Methylnaltrexone [place] (Relistor) 12 mg SUBCUT ONETIME ONE Stop: 03/25/20 13:52 Last Admin: 03/25/20 14:13 Dose: 12 mg Documented by: Metoclopramide HCl (Reglan) 10 mg IVPUSH ONETIME ONE Stop: 03/25/20 11:36 Last Admin: 03/25/20 11:45 Dose: 10 mg Documented by: - Exam General: Alert, Oriented, Cooperative Lungs: Clear to Auscultation, Normal Respiratory Effort Cardiovascular: Regular Rate, Regular Rhythm GI/Abdominal Exam: Non-Tender, No Organomegaly Sepsis Event Note - Evaluation Sepsis Screening Result: No Definite Risk - Focused Exam Vital Signs: Vital Signs Temp Pulse Resp BP BP Pulse Ox 03/26/20 08:00 36.8 C 85 20 129/70 95 03/26/20 00:15 38.1 C 107 H 20 131/65 92 L Date Exam was Performed: 03/26/20 Time Exam was Performed: 10:25 - Problem List Review Problem List Initiated/Reviewed/Updated: Yes - My Orders Last 24 Hours: My Active Orders 03/26/20 10:06 Loperamide [Imodium] 2 mg PO Q6H PRN 03/26/20 Lunch Advance Diet Instructions [DIET] Full Liquid Diet [DIET] - Plan Plan:: #Sepsis due to diverticulitis: Qualifies with hypothermia and leukocytosis #Acute diverticulitis patient with abdominal pain. CT abdomen showing sigmoid diverticulitis. No mention of perforation or abscess. IV fluids Continue Zosyn Advance diet as tolerated #Severe ileus: Patient with CT findings suggestive of severe generalized ileus rather than mechanical bowel obstruction. Has had several diarrhea #Lactic acidosis: Resolved #Hypokalemia: Resolved #DVT prophylaxis: Heparin #GI prophylaxis: Protonix CODE STATUS: Full code per patient preference.
[2020-03-26] MEDS: Sodium Chloride 0.9% 1,000 ML IV SCH (15:57)
[2020-03-27] MEDS: Morphine 2 MG/ML Syringe IVPUSH PRN ×6 (00:14→21:41)
[2020-03-27] MEDS: Piperacillin/Tazobactam 3.375 GM in Sodium Chloride 0.9% 100 ML IV SCH ×4 (00:18→17:43)
[2020-03-27] MEDS: Sodium Chloride 0.9% 1,000 ML IV SCH ×2 (03:03→13:39)
[2020-03-27] MEDS: Heparin Sodium 5,000 Units/ML Vial SUBCUT SCH ×3 (05:08→21:40)
[2020-03-27] MEDS: Acetaminophen 325 MG Tab PO PRN ×2 (09:03→16:52)
[2020-03-27] MEDS: Aspirin 81 MG Tab.Chew PO SCH (09:03)
[2020-03-27] MEDS: Ergocalciferol (Vitamin D2) 1.25 MG Cap PO SCH (09:04)
[2020-03-27 09:59] LABS: ANION GAP 11.4 mEq/L (7-13); CHLORIDE,CL 96 mmol/L (98-107); SODIUM,NA 131 mmol/L (136-145)
--- NOTE | 2020-03-27 10:35 | PCM.PN ---
- General Info Date of Service: 03/27/20 Subjective Update: Patient has no new complaints today. Continues to have abdominal pain mostly around the periumbilical area Intensity has improved since admission. Has occasional diarrhea - Review of Systems General: Reports: Fatigue, Malaise Pulmonary: Reports: Shortness of Breath, Cough Cardiovascular: Reports: No Symptoms Gastrointestinal: Reports: No Symptoms Musculoskeletal: Reports: No Symptoms - Patient Data Vitals - Most Recent: Last Vital Signs Temp 36.7 C 03/27/20 08:00 Pulse 86 03/27/20 08:00 Resp 20 03/27/20 08:00 BP 143/62 H 03/27/20 08:00 Pulse Ox 93 L 03/27/20 08:00 Weight - Most Recent: 126.325 kg I&O - Last 24 Hours: Intake & Output 03/26/20 03/27/20 03/27/20 22:59 06:59 14:59 Intake Total 220 3736 240 Output Total 250 625 Balance -30 3111 240 Lab Results Last 24 Hours: Laboratory Results - last 24 hr 03/27/20 03/27/20 Range/Units 09:37 09:37 WBC 13.6 H (5.0-10.0) 10^3/uL RBC 3.40 L (4.2-5.4) 10^6/uL Hgb 10.5 L D (12.0-16.0) g/dL Hct 31.2 L (37.0-47.0) % MCV 91.8 (80-100) fL MCH 30.9 (27.0-34.0) pg MCHC 33.7 (33.0-35.0) g/dL Plt Count 272 D (150-450) 10^3/uL Sodium 131 L (136-145) mmol/L Potassium 3.4 L (3.5-5.1) mmol/L Chloride 96 L (98-107) mmol/L Carbon Dioxide 27 (21-32) mmol/L Anion Gap 11.4 (7-13) mEq/L BUN 12 (7-18) mg/dL Creatinine 0.80 (0.55-1.02) mg/dL Est Cr Clr Drug Dosing 94.58 mL/min Estimated GFR (MDRD) > 60 Glucose 111 H (74-99) mg/dL Calcium 8.4 L (8.5-10.1) mg/dL [place] Results Last 24 Hours: Microbiology 03/25/20 12:13 Aerobic Blood Culture - Preliminary Blood - Venous - Lab Draw NO GROWTH AFTER 1 DAY Anaerobic Blood Culture - Preliminary 03/25/20 11:39 Aerobic Blood Culture - Preliminary Blood - Venous NO GROWTH AFTER 1 DAY Anaerobic Blood Culture - Preliminary Med Orders - Current: Current Medications Acetaminophen (Tylenol) 650 mg PO Q4H PRN PRN Reason: Pain (Mild 1-3)/fever Last Admin: 03/27/20 09:03 Dose: 650 mg Documented by: Aspirin (Aspirin) 81 mg PO DAILY [facility] Last Admin: 03/27/20 09:03 Dose: 81 mg Documented by: Ergocalciferol (Vitamin D2) 1.25 mg PO DAILY [facility] Last Admin: 03/27/20 09:04 Dose: Not Given Documented by: Fentanyl (Duragesic) 50 mcg TRDERM Q72H [facility] Last Admin: 03/25/20 15:48 Dose: 50 mcg Documented by: Heparin Sodium (Porcine) (Heparin Sodium) 5,000 units SUBCUT Q8HR [facility] Last Admin: 03/27/20 05:08 Dose: 5,000 units Documented by: Piperacillin Sod/Tazobactam (Sod 3.375 gm/ Sodium Chloride) 100 mls @ 200 mls/hr IV Q6HR [facility] Last Admin: 03/27/20 05:09 Dose: 200 mls/hr Documented by: Sodium Chloride (Normal Saline) 1,000 mls @ 100 mls/hr IV ASDIRECTED [facility] Last Admin: 03/27/20 03:03 Dose: 100 mls/hr Documented by: Loperamide HCl (Imodium) 2 mg PO Q6H PRN PRN Reason: Diarrhea Miscellaneous Information (Check Patch) 1 ea TRDERM Q12HR [facility] Last Admin: 03/27/20 09:04 Dose: Not Given Documented by: Miscellaneous Information (Remove Patch) 1 ea TRDERM Q72H [facility] Morphine Sulfate (Morphine) 2 mg IVPUSH Q4H PRN PRN Reason: Other Last Admin: 03/27/20 09:03 Dose: 2 mg Documented by: Ondansetron HCl (Zofran) 4 mg IVPUSH Q6H PRN PRN Reason: Nausea/Vomiting Last Admin: 03/26/20 17:31 Dose: 4 mg Documented by: Ondansetron HCl (Zofran Odt) 4 mg PO Q6H PRN PRN Reason: nausea, able to take PO Pregabalin (Lyrica) 150 mg PO BEDTIME [facility] Last Admin: 03/26/20 21:23 Dose: 150 mg Documented by: Senna/Docusate Sodium (Senna Plus) 1 tab PO BEDTIME [facility] Last Admin: 03/26/20 21:23 Dose: Not Given Documented by: Sodium Chloride (Saline Flush) 10 ml FLUSH ASDIRECTED PRN PRN Reason: Keep Vein Open Last Admin: 03/25/20 23:56 Dose: 10 ml Documented by: Discontinued Medications Fentanyl (Sublimaze) 100 mcg IVPUSH ONETIME ONE Stop: 03/25/20 11:36 Last Admin: 03/25/20 11:45 Dose: 100 mcg Documented by: Fentanyl (Sublimaze) 100 mcg IVPUSH ONETIME ONE Stop: 03/25/20 13:41 Last Admin: 03/25/20 13:48 Dose: 100 mcg Documented by: Sodium Chloride (Normal Saline) 1,000 mls @ 999 mls/hr IV .BOLUS ONE Stop: 03/25/20 12:35 Last Admin: 03/25/20 11:40 Dose: 999 mls/hr Documented by: Piperacillin Sod/Tazobactam (Sod 3.375 gm/ Sodium Chloride) 100 mls @ 200 mls/hr IV ONETIME ONE Stop: 03/25/20 13:47 Last Admin: 03/25/20 13:34 Dose: 200 mls/hr Documented by: Sodium Chloride (Normal Saline) 1,000 mls @ 300 mls/hr IV ASDIRECTED [facility] Last Admin: 03/25/20 13:36 Dose: 300 mls/hr Documented by: Potassium Chloride 10 meq/ (Premix) 100 mls @ 100 mls/hr IV Q1H [facility] Stop: 03/25/20 19:59 Last Infusion: 03/26/20 00:38 Dose: Infused Documented by: Sodium Chloride (Normal Saline) 1,000 mls @ 999 mls/hr IV .BOLUS ONE Stop: 03/25/20 19:17 Last Infusion: 03/25/20 21:16 Dose: Infused Documented by: Potassium Chloride 10 meq/ (Premix) 100 mls @ 100 mls/hr IV Q1H [facility] Stop: 03/25/20 23:59 Last Admin: 03/25/20 22:30 Dose: Not Given Documented by: Iopamidol (Isovue-300 (61%)) 100 ml IVPUSH ONETIME ONE Stop: 03/25/20 12:29 Last Admin: 03/25/20 13:01 Dose: 100 ml Documented by: Methylnaltrexone [place] (Relistor) 12 mg SUBCUT ONETIME ONE Stop: 03/25/20 13:52 Last Admin: 03/25/20 14:13 Dose: 12 mg Documented by: Metoclopramide HCl (Reglan) 10 mg IVPUSH ONETIME ONE Stop: 03/25/20 11:36 Last Admin: 03/25/20 11:45 Dose: 10 mg Documented by: - Exam Quality Assessment: Supplemental Oxygen General: Alert, Oriented Lungs: Clear to Auscultation, Decreased Breath Sounds Cardiovascular: Regular Rate, Regular Rhythm GI/Abdominal Exam: Normal Bowel Sounds, Soft, Non-Tender, No Organomegaly, No Distention, No Abnormal Bruit, No Mass, Pelvis Stable Sepsis Event Note - Evaluation Sepsis Screening Result: No Definite Risk - Focused Exam Vital Signs: Vital Signs Temp Pulse Resp BP Pulse Ox 03/27/20 08:00 36.7 C 86 20 143/62 H 93 L 03/27/20 04:00 36.8 C 92 20 134/65 93 L Date Exam was Performed: 03/27/20 Time Exam was Performed: 10:32 - Problem List Review Problem List Initiated/Reviewed/Updated: Yes - My Orders Last 24 Hours: My Active Orders 03/26/20 10:06 Loperamide [Imodium] 2 mg PO Q6H PRN 03/26/20 Lunch Advance Diet Instructions [DIET] Full Liquid Diet [DIET] 03/27/20 09:08 Incentive Spirometry [RT Incentive Spirometry] [RC] Q2HWA 03/27/20 10:32 CULTURE BLOOD [BC] Stat CULTURE BLOOD [BC] Stat Blood Culture x2 Reflex Set [OM.PC] Stat 03/28/20 05:11 BASIC METABOLIC PANEL,BMP [CHEM] AM CBC W/O DIFF,HEMOGRAM [HEME] AM - Plan Plan:: #Sepsis due to diverticulitis: Blood cultures positive with gram-negative rods Intravenous Zosyn #Acute diverticulitis patient with abdominal pain. CT abdomen showing sigmoid diverticulitis. No mention of perforation or abscess. IV fluids Continue Zosyn #Severe ileus: Resolved #Lactic acidosis: Resolved #Hypokalemia: Resolved #DVT prophylaxis: Heparin #GI prophylaxis: Protonix CODE STATUS: Full code per patient preference.
[2020-03-27] MEDS: Ondansetron 4 MG/2 ML SDV IVPUSH PRN (17:44)
[2020-03-28] MEDS: Piperacillin/Tazobactam 3.375 GM in Sodium Chloride 0.9% 100 ML IV SCH ×5 (00:31→23:47)
[2020-03-28] MEDS: Acetaminophen 325 MG Tab PO PRN ×2 (00:36→05:38)
[2020-03-28] MEDS: Sodium Chloride 0.9% 1,000 ML IV SCH ×2 (00:42→15:29)
[2020-03-28] MEDS: Morphine 2 MG/ML Syringe IVPUSH PRN ×3 (02:37→14:59)
[2020-03-28] MEDS: Heparin Sodium 5,000 Units/ML Vial SUBCUT SCH ×3 (05:39→21:17)
[2020-03-28 06:43] LABS: ANION GAP 10.9 mEq/L (7-13); CHLORIDE,CL 97 mmol/L (98-107); SODIUM,NA 132 mmol/L (136-145)
[2020-03-28] MEDS: Aspirin 81 MG Tab.Chew PO SCH (08:43)
[2020-03-28] MEDS: Ergocalciferol (Vitamin D2) 1.25 MG Cap PO SCH (08:43)
[2020-03-28] MEDS ORDERED: Furosemide 20 MG/2 ML VIAL IVPUSH ONE (10:15)
--- NOTE | 2020-03-28 10:23 | PCM.PN ---
- General Info Date of Service: 03/28/20 Subjective Update: The patient is still complaining of significant abdominal pain She points to the suprapubic area. Intensity of the pain goes up to10 on a scale 0-10. No fever. Appetite is poor. She has not been eating well - Review of Systems General: Reports: Fatigue Pulmonary: Reports: No Symptoms Cardiovascular: Reports: No Symptoms Gastrointestinal: Reports: Abdominal Pain, Decreased Appetite Musculoskeletal: Reports: No Symptoms Skin: Reports: No Symptoms - Patient Data Vitals - Most Recent: Last Vital Signs Temp 36.3 C 03/28/20 08:00 Pulse 80 03/28/20 08:00 Resp 18 03/28/20 08:00 BP 145/73 H 03/28/20 08:00 Pulse Ox 93 L 03/28/20 08:00 Weight - Most Recent: 126.325 kg I&O - Last 24 Hours: Intake & Output 03/27/20 03/28/20 03/28/20 22:59 06:59 14:59 Intake Total 150 1500 740 Output Total 900 2250 300 Balance -750 -750 440 Lab Results Last 24 Hours: Laboratory Results - last 24 hr 03/28/20 03/28/20 Range/Units 06:18 06:18 WBC 13.2 H (5.0-10.0) 10^3/uL RBC 3.36 L (4.2-5.4) 10^6/uL Hgb 10.2 L (12.0-16.0) g/dL Hct 30.4 L (37.0-47.0) % MCV 90.5 (80-100) fL MCH 30.4 (27.0-34.0) pg MCHC 33.6 (33.0-35.0) g/dL Plt Count 272 (150-450) 10^3/uL Sodium 132 L (136-145) mmol/L Potassium 2.9 L (3.5-5.1) mmol/L Chloride 97 L (98-107) mmol/L Carbon Dioxide 27 (21-32) mmol/L Anion Gap 10.9 (7-13) mEq/L BUN 10 (7-18) mg/dL Creatinine 0.71 (0.55-1.02) mg/dL Est Cr Clr Drug Dosing 106.57 mL/min Estimated GFR (MDRD) > 60 Glucose 89 (74-99) mg/dL Calcium 8.1 L (8.5-10.1) mg/dL Asher Results Last 24 Hours: Microbiology 03/25/20 12:13 Aerobic Blood Culture - Preliminary Blood - Venous - Lab Draw NO GROWTH AFTER 2 DAYS Anaerobic Blood Culture - Preliminary 03/25/20 11:39 Aerobic Blood Culture - Preliminary Blood - Venous NO GROWTH AFTER 2 DAYS Anaerobic Blood Culture - Preliminary Med Orders - Current: Current Medications Acetaminophen (Tylenol) 650 mg PO Q4H PRN PRN Reason: Pain (Mild 1-3)/fever Last Admin: 03/28/20 05:38 Dose: 650 mg Documented by: Aspirin (Aspirin) 81 mg PO DAILY [facility] Last Admin: 03/28/20 08:43 Dose: 81 mg Documented by: Ergocalciferol (Vitamin D2) 1.25 mg PO DAILY [facility] Last Admin: 03/28/20 08:43 Dose: 1.25 mg Documented by: Fentanyl (Duragesic) 50 mcg TRDERM Q72H [facility] Last Admin: 03/25/20 15:48 Dose: 50 mcg Documented by: Furosemide (Lasix) 20 mg IVPUSH ONETIME ONE Stop: 03/28/20 10:16 Heparin Sodium (Porcine) (Heparin Sodium) 5,000 units SUBCUT Q8HR [facility] Last Admin: 03/28/20 05:39 Dose: 5,000 units Documented by: Piperacillin Sod/Tazobactam (Sod 3.375 gm/ Sodium Chloride) 100 mls @ 200 mls/hr IV Q6HR [facility] Last Admin: 03/28/20 05:39 Dose: 200 mls/hr Documented by: Sodium Chloride (Normal Saline) 1,000 mls @ 50 mls/hr IV ASDIRECTED [facility] Last Admin: 03/28/20 00:42 Dose: 100 mls/hr Documented by: Loperamide HCl (Imodium) 2 mg PO Q6H PRN PRN Reason: Diarrhea Miscellaneous Information (Check Patch) 1 ea TRDERM Q12HR [facility] Last Admin: 03/28/20 08:44 Dose: Not Given Documented by: Miscellaneous Information (Remove Patch) 1 ea TRDERM Q72H [facility] Morphine Sulfate (Morphine) 2 mg IVPUSH Q4H PRN PRN Reason: Other Last Admin: 03/28/20 08:40 Dose: 2 mg Documented by: Ondansetron HCl (Zofran) 4 mg IVPUSH Q6H PRN PRN Reason: Nausea/Vomiting Last Admin: 03/27/20 17:44 Dose: 4 mg Documented by: Ondansetron HCl (Zofran Odt) 4 mg PO Q6H PRN PRN Reason: nausea, able to take PO Pregabalin (Lyrica) 150 mg PO BEDTIME [facility] Last Admin: 03/27/20 21:40 Dose: 150 mg Documented by: Senna/Docusate Sodium (Senna Plus) 1 tab PO BEDTIME [facility] Last Admin: 03/27/20 21:40 Dose: Not Given Documented by: Sodium Chloride (Saline Flush) 10 ml FLUSH ASDIRECTED PRN PRN Reason: Keep Vein Open Last Admin: 03/25/20 23:56 Dose: 10 ml Documented by: Tramadol HCl (Ultram) 50 mg PO Q6H PRN PRN Reason: Abdominal Pain Discontinued Medications Fentanyl (Sublimaze) 100 mcg IVPUSH ONETIME ONE Stop: 03/25/20 11:36 Last Admin: 03/25/20 11:45 Dose: 100 mcg Documented by: Fentanyl (Sublimaze) 100 mcg IVPUSH ONETIME ONE Stop: 03/25/20 13:41 Last Admin: 03/25/20 13:48 Dose: 100 mcg Documented by: Sodium Chloride (Normal Saline) 1,000 mls @ 999 mls/hr IV .BOLUS ONE Stop: 03/25/20 12:35 Last Admin: 03/25/20 11:40 Dose: 999 mls/hr Documented by: Piperacillin Sod/Tazobactam (Sod 3.375 gm/ Sodium Chloride) 100 mls @ 200 mls/hr IV ONETIME ONE Stop: 03/25/20 13:47 Last Admin: 03/25/20 13:34 Dose: 200 mls/hr Documented by: Sodium Chloride (Normal Saline) 1,000 mls @ 300 mls/hr IV ASDIRECTED [facility] Last Admin: 03/25/20 13:36 Dose: 300 mls/hr Documented by: Potassium Chloride 10 meq/ (Premix) 100 mls @ 100 mls/hr IV Q1H [facility] Stop: 03/25/20 19:59 Last Infusion: 03/26/20 00:38 Dose: Infused Documented by: Sodium Chloride (Normal Saline) 1,000 mls @ 999 mls/hr IV .BOLUS ONE Stop: 03/25/20 19:17 Last Infusion: 03/25/20 21:16 Dose: Infused Documented by: Potassium Chloride 10 meq/ (Premix) 100 mls @ 100 mls/hr IV Q1H [facility] Stop: 03/25/20 23:59 Last Admin: 03/25/20 22:30 Dose: Not Given Documented by: Iopamidol (Isovue-300 (61%)) 100 ml IVPUSH ONETIME ONE Stop: 03/25/20 12:29 Last Admin: 03/25/20 13:01 Dose: 100 ml Documented by: Methylnaltrexone [place] (Relistor) 12 mg SUBCUT ONETIME ONE Stop: 03/25/20 13:52 Last Admin: 03/25/20 14:13 Dose: 12 mg Documented by: Metoclopramide HCl (Reglan) 10 mg IVPUSH ONETIME ONE Stop: 03/25/20 11:36 Last Admin: 03/25/20 11:45 Dose: 10 mg Documented by: - Exam General: Alert, Oriented, Cooperative Neck: Supple Lungs: Clear to Auscultation, Normal Respiratory Effort Cardiovascular: Regular Rate, Regular Rhythm GI/Abdominal Exam: Tender Extremities: Pedal Edema Sepsis Event Note - Evaluation Sepsis Screening Result: No Definite Risk - Focused Exam Vital Signs: Vital Signs Temp Pulse Resp BP Pulse Ox 03/28/20 08:00 36.3 C 80 18 145/73 H 93 L 03/28/20 02:46 37.1 C 84 18 140/57 L 92 L 03/27/20 23:15 36.8 C 74 18 138/78 96 Date Exam was Performed: 03/28/20 Time Exam was Performed: : - Problem List Review Problem List Initiated/Reviewed/Updated: Yes - My Orders Last 24 Hours: My Active Orders 03/27/20 10:32 Blood Culture x2 Reflex Set [OM.PC] Stat 03/27/20 10:35 Blood Culture x2 Reflex Set [OM.PC] Stat 03/27/20 11:00 CULTURE BLOOD [BC] Stat 03/27/20 11:05 CULTURE BLOOD [BC] Stat 03/28/20 10:15 Furosemide [Lasix] 20 mg IVPUSH ONETIME ONE 06/19/20 10:16 traMADol [Ultram] 50 mg PO Q6H PRN 03/29/20 05:11 BASIC METABOLIC PANEL,BMP [CHEM] AM CBC W/O DIFF,HEMOGRAM [HEME] AM - Plan Plan:: #Sepsis due to diverticulitis: Blood cultures positive with gram-negative rods #Acute diverticulitis patient with abdominal pain. CT abdomen showing sigmoid diverticulitis. No mention of perforation or abscess. IV fluids #Severe ileus: Resolved #Lactic acidosis: Resolved #Hypokalemia: Resolved #DVT prophylaxis: Heparin #GI prophylaxis: Protonix Plan: continue zosyn Obtain repeat CBC Obtain repeat BMP start patient on tramadol every 6 hours prn Serial exam Reduce IV fluid to 50 cc/hr Give a stat dose of IV lasix 20 mg CODE STATUS: Full code per patient preference.
[2020-03-28] MEDS: traMADol 50 MG Tab PO PRN ×3 (10:37→23:45)
[2020-03-28] MEDS: Pantoprazole 40 MG Tab.CR PO SCH (10:44)
[2020-03-28] MEDS ORDERED: REMOVE FENTANYL TRDERM SCH (15:00)
[2020-03-28] MEDS: fentaNYL 50 MCG/HR Transdermal Patch TRDERM SCH (15:05)
[2020-03-28] MEDS: Ondansetron 4 MG Tab.DIS PO PRN (17:45)
[2020-03-29] MEDS: Pantoprazole 40 MG Tab.CR PO SCH (05:33)
[2020-03-29] MEDS: traMADol 50 MG Tab PO PRN (05:33)
[2020-03-29] MEDS: Piperacillin/Tazobactam 3.375 GM in Sodium Chloride 0.9% 100 ML IV SCH ×4 (05:41→23:46)
[2020-03-29] MEDS: Heparin Sodium 5,000 Units/ML Vial SUBCUT SCH (05:47)
[2020-03-29 06:55] LABS: ANION GAP 5.6 mEq/L (7-13); CHLORIDE,CL 96 mmol/L (98-107); SODIUM,NA 132 mmol/L (136-145)
[2020-03-29] MEDS: Acetaminophen 325 MG Tab PO PRN (09:13)
[2020-03-29] MEDS: Ergocalciferol (Vitamin D2) 1.25 MG Cap PO SCH (09:14)
[2020-03-29] MEDS: Aspirin 81 MG Tab.Chew PO SCH (09:14)
[2020-03-29] MEDS ORDERED: Potassium Chloride 10 MEQ Tab.ER PO SCH (09:28)
--- NOTE | 2020-03-29 10:12 | PCM.PN ---
- General Info Date of Service: 03/29/20 Subjective Update: The patient indicates that she is still having significant pain at the lower abdomen. The patient gets worse after she eats. It usually lasts for about an hour after eating before improving. No fever documented. Denies nausea or vomiting. - Review of Systems General: Reports: Malaise, Appetite Pulmonary: Reports: No Symptoms Cardiovascular: Reports: No Symptoms Gastrointestinal: Reports: No Symptoms - Patient Data Vitals - Most Recent: Last Vital Signs Temp 36.8 C 03/29/20 08:00 Pulse 80 03/29/20 03:15 Resp 20 03/29/20 08:00 BP 143/83 H 03/29/20 08:00 Pulse Ox 92 L 03/29/20 08:00 Weight - Most Recent: 126.325 kg I&O - Last 24 Hours: Intake & Output 03/28/20 03/29/20 03/29/20 22:59 06:59 14:59 Intake Total 2040 1757 560 Output Total 700 1000 Balance 1340 757 560 Lab Results Last 24 Hours: Laboratory Results - last 24 hr 03/29/20 03/29/20 Range/Units 06:15 06:15 WBC 15.1 H (5.0-10.0) 10^3/uL RBC 3.21 L (4.2-5.4) 10^6/uL Hgb 9.9 L (12.0-16.0) g/dL Hct 28.9 L (37.0-47.0) % MCV 90.0 (80-100) fL MCH 30.8 (27.0-34.0) pg MCHC 34.3 (33.0-35.0) g/dL Plt Count 313 (150-450) 10^3/uL Sodium 132 L (136-145) mmol/L Potassium 2.6 L (3.5-5.1) mmol/L Chloride 96 L (98-107) mmol/L Carbon Dioxide 33 H (21-32) mmol/L Anion Gap 5.6 L (7-13) mEq/L BUN 6 L (7-18) mg/dL Creatinine 0.46 L (0.55-1.02) mg/dL Est Cr Clr Drug Dosing 164.48 mL/min Estimated GFR (MDRD) > 60 Glucose 97 (74-99) mg/dL Calcium 7.8 L (8.5-10.1) mg/dL Asher Results Last 24 Hours: Microbiology 03/25/20 12:13 Aerobic Blood Culture - Preliminary Blood - Venous - Lab Draw NO GROWTH AFTER 3 DAYS Anaerobic Blood Culture - Preliminary 03/25/20 11:39 Aerobic Blood Culture - Preliminary Blood - Venous NO GROWTH AFTER 3 DAYS Anaerobic Blood Culture - Preliminary 03/27/20 11:05 Aerobic Blood Culture - Preliminary Blood - Venous - Lab Draw NO GROWTH AFTER 1 DAY Anaerobic Blood Culture - Preliminary NO GROWTH AFTER 1 DAY 03/27/20 11:00 Aerobic Blood Culture - Preliminary Blood - Venous NO GROWTH AFTER 1 DAY Anaerobic Blood Culture - Preliminary NO GROWTH AFTER 1 DAY Med Orders - Current: Current Medications Acetaminophen (Tylenol) 650 mg PO Q4H PRN PRN Reason: Pain (Mild 1-3)/fever Last Admin: 03/29/20 09:13 Dose: 650 mg Documented by: Aspirin (Aspirin) 81 mg PO DAILY [facility] Last Admin: 03/29/20 09:14 Dose: 81 mg Documented by: Ergocalciferol (Vitamin D2) 1.25 mg PO DAILY [facility] Last Admin: 03/29/20 09:14 Dose: 1.25 mg Documented by: Fentanyl (Duragesic) 50 mcg TRDERM Q72H [facility] Last Admin: 03/28/20 15:05 Dose: 50 mcg Documented by: Heparin Sodium (Porcine) (Heparin Sodium) 5,000 units SUBCUT Q8HR [facility] Last Admin: 03/29/20 05:47 Dose: Not Given Documented by: Piperacillin Sod/Tazobactam (Sod 3.375 gm/ Sodium Chloride) 100 mls @ 200 mls/hr IV Q6HR [facility] Last Infusion: 03/29/20 06:25 Dose: Infused Documented by: Sodium Chloride (Normal Saline) 1,000 mls @ 50 mls/hr IV ASDIRECTED [facility] Last Admin: 03/28/20 15:29 Dose: 50 mls/hr Documented by: Miscellaneous Information (Check Patch) 1 ea TRDERM Q12HR [facility] Last Admin: 03/29/20 09:16 Dose: Not Given Documented by: Miscellaneous Information (Remove Patch) 1 ea TRDERM Q72H [facility] Last Admin: 03/28/20 15:05 Dose: 1 ea Documented by: Morphine Sulfate (Morphine) 2 mg IVPUSH Q4H PRN PRN Reason: Other Last Admin: 03/28/20 14:59 Dose: 2 mg Documented by: Ondansetron HCl (Zofran) 4 mg IVPUSH Q6H PRN PRN Reason: Nausea/Vomiting Last Admin: 03/27/20 17:44 Dose: 4 mg Documented by: Ondansetron HCl (Zofran Odt) 4 mg PO Q6H PRN PRN Reason: nausea, able to take PO Last Admin: 03/28/20 17:45 Dose: 4 mg Documented by: Oxycodone HCl (Oxycodone) 5 mg PO Q4H PRN PRN Reason: Pain (severe 7-10) Pantoprazole Sodium (Protonix) 40 mg PO ACBREAKFAST [facility] Last Admin: 03/29/20 05:33 Dose: 40 mg Documented by: Potassium Chloride (Klor-Con 10) 40 meq PO TIDMEALS [facility] Pregabalin (Lyrica) 150 mg PO BEDTIME [facility] Last Admin: 03/28/20 21:18 Dose: 150 mg Documented by: Senna/Docusate Sodium (Senna Plus) 1 tab PO BEDTIME [facility] Last Admin: 03/28/20 21:18 Dose: 1 tab Documented by: Sodium Chloride (Saline Flush) 10 ml FLUSH ASDIRECTED PRN PRN Reason: Keep Vein Open Last Admin: 03/25/20 23:56 Dose: 10 ml Documented by: Discontinued Medications Fentanyl (Sublimaze) 100 mcg IVPUSH ONETIME ONE Stop: 03/25/20 11:36 Last Admin: 03/25/20 11:45 Dose: 100 mcg Documented by: Fentanyl (Sublimaze) 100 mcg IVPUSH ONETIME ONE Stop: 03/25/20 13:41 Last Admin: 03/25/20 13:48 Dose: 100 mcg Documented by: Furosemide (Lasix) 20 mg IVPUSH ONETIME ONE Stop: 03/28/20 10:16 Last Admin: 03/28/20 10:37 Dose: 20 mg Documented by: Sodium Chloride (Normal Saline) 1,000 mls @ 999 mls/hr IV .BOLUS ONE Stop: 03/25/20 12:35 Last Admin: 03/25/20 11:40 Dose: 999 mls/hr Documented by: Piperacillin Sod/Tazobactam (Sod 3.375 gm/ Sodium Chloride) 100 mls @ 200 mls/hr IV ONETIME ONE Stop: 03/25/20 13:47 Last Admin: 03/25/20 13:34 Dose: 200 mls/hr Documented by: Sodium Chloride (Normal Saline) 1,000 mls @ 300 mls/hr IV ASDIRECTED [facility] Last Admin: 03/25/20 13:36 Dose: 300 mls/hr Documented by: Potassium Chloride 10 meq/ (Premix) 100 mls @ 100 mls/hr IV Q1H [facility] Stop: 03/25/20 19:59 Last Infusion: 03/26/20 00:38 Dose: Infused Documented by: Sodium Chloride (Normal Saline) 1,000 mls @ 999 mls/hr IV .BOLUS ONE Stop: 03/25/20 19:17 Last Infusion: 03/25/20 21:16 Dose: Infused Documented by: Potassium Chloride 10 meq/ (Premix) 100 mls @ 100 mls/hr IV Q1H [facility] Stop: 03/25/20 23:59 Last Admin: 03/25/20 22:30 Dose: Not Given Documented by: Iopamidol (Isovue-300 (61%)) 100 ml IVPUSH ONETIME ONE Stop: 03/25/20 12:29 Last Admin: 03/25/20 13:01 Dose: 100 ml Documented by: Loperamide HCl (Imodium) 2 mg PO Q6H PRN PRN Reason: Diarrhea Methylnaltrexone [place] (Relistor) 12 mg SUBCUT ONETIME ONE Stop: 03/25/20 13:52 Last Admin: 03/25/20 14:13 Dose: 12 mg Documented by: Metoclopramide HCl (Reglan) 10 mg IVPUSH ONETIME ONE Stop: 03/25/20 11:36 Last Admin: 03/25/20 11:45 Dose: 10 mg Documented by: Tramadol HCl (Ultram) 50 mg PO Q6H PRN PRN Reason: Abdominal Pain Last Admin: 03/29/20 05:33 Dose: 50 mg Documented by: - Exam General: Alert, Oriented, Cooperative Neck: Supple Lungs: Clear to Auscultation, Normal Respiratory Effort Cardiovascular: Regular Rate, Regular Rhythm GI/Abdominal Exam: Tender (Tenderness at the suprapubic region. Significant bruising of the lower abdomen) Sepsis Event Note - Evaluation Sepsis Screening Result: No Definite Risk - Focused Exam Vital Signs: Vital Signs Temp Pulse Resp BP BP Pulse Ox 03/29/20 08:00 36.8 C 20 143/83 H 92 L 03/29/20 03:15 37.3 C 80 20 125/55 L 93 L 03/29/20 00:00 37.1 C 84 20 131/63 95 Date Exam was Performed: 03/29/20 Time Exam was Performed: 10:08 - Problem List Review Problem List Initiated/Reviewed/Updated: Yes - My Orders Last 24 Hours: My Active Orders 03/28/20 10:36 Pantoprazole [ProTONIX] 40 mg PO ACBREAKFAST 03/29/20 09:28 Potassium Chloride [Klor-Con 10] 40 meq PO TIDMEALS 03/29/20 09:52 oxyCODONE 5 mg PO Q4H PRN 03/29/20 16:29 BASIC METABOLIC PANEL,BMP [CHEM] Timed 03/30/20 05:11 CBC W/O DIFF,HEMOGRAM [HEME] AM - Plan Plan:: #Sepsis due to diverticulitis: Blood cultures positive with gram-negative rods #Acute diverticulitis CT abdomen showing sigmoid diverticulitis. No mention of perforation or abscess. IV fluids #Severe ileus: Resolved #Lactic acidosis: Resolved #Hypokalemia: Resolved #. Abdominal wall bruising Likely due to prophylactic anticoagulation heparin #GI prophylaxis: Protonix Plan: Patient is still having significant abdominal pain. Her white cell count is higher today at 15,000. No fever documented. This raises concern about formation of intra-abdominal abscess. I will obtain repeat complete blood count and if white cell count continues to be higher I would proceed to obtain a repeat CT scan. Discontinue heparin
[2020-03-29] MEDS ORDERED: Potassium Chloride 10 MEQ Tab.ER PO ONE (10:34)
[2020-03-29] MEDS: Sodium Chloride 0.9% 1,000 ML IV SCH (11:07)
[2020-03-29] MEDS: Potassium Chloride 100 ML IV SCH ×6 (11:08→22:37)
[2020-03-29] MEDS: Potassium Chloride 20 MEQ in Premix Bag 2 BAG IV ONE ×2 (11:08→13:08)
[2020-03-29] MEDS: oxyCODONE 5 MG Tab PO PRN ×3 (13:09→21:02)
[2020-03-29] MEDS: Ondansetron 4 MG Tab.DIS PO PRN (13:09)
[2020-03-29 17:25] LABS: ANION GAP 6.1 mEq/L (7-13); CHLORIDE,CL 96 mmol/L (98-107); SODIUM,NA 131 mmol/L (136-145)
[2020-03-29] MEDS ORDERED: Potassium Chloride 20 MEQ in Premix Bag 2 BAG IV ONE (17:34)
[2020-03-30] MEDS: oxyCODONE 5 MG Tab PO PRN ×3 (01:04→10:24)
[2020-03-30] MEDS: Piperacillin/Tazobactam 3.375 GM in Sodium Chloride 0.9% 100 ML IV SCH ×2 (05:12→11:54)
[2020-03-30] MEDS: Pantoprazole 40 MG Tab.CR PO SCH (05:12)
[2020-03-30 07:07] LABS: ANION GAP 8.5 mEq/L (7-13); CHLORIDE,CL 95 mmol/L (98-107); SODIUM,NA 134 mmol/L (136-145)
[2020-03-30] MEDS: Aspirin 81 MG Tab.Chew PO SCH (08:02)
[2020-03-30] MEDS: Acetaminophen 325 MG Tab PO PRN (08:02)
[2020-03-30] MEDS: Ergocalciferol (Vitamin D2) 1.25 MG Cap PO SCH (08:02)
[2020-03-30] MEDS ORDERED: Iopamidol 612 MG/ML 100 ML Bottle IVPUSH ONE (09:13)
[2020-03-30] MEDS ORDERED: Barium Sulfate w/v 2.1% Oral Susp 450 ML Bottle PO ONE (09:14)
--- NOTE | 2020-03-30 09:45 | PCM.PN ---
- General Info Date of Service: 03/30/20 Subjective Update: Patient is still having significant abdominal pain at the suprapubic region. Intensity is slightly better today compared to yesterday. Has associated nausea. No vomiting. Patient's white cell count is was today at 18,000. No fever documented overnight - Review of Systems General: Reports: Malaise HEENT: Reports: No Symptoms Pulmonary: Reports: No Symptoms Cardiovascular: Reports: No Symptoms Gastrointestinal: Reports: Abdominal Pain, Nausea Musculoskeletal: Reports: No Symptoms - Patient Data Vitals - Most Recent: Last Vital Signs Temp 36.5 C 03/30/20 08:00 Pulse 72 03/30/20 08:00 Resp 18 03/30/20 08:00 BP 143/61 H 03/30/20 08:00 Pulse Ox 93 L 03/30/20 08:00 Weight - Most Recent: 126.325 kg I&O - Last 24 Hours: Intake & Output 03/29/20 03/30/20 03/30/20 22:59 06:59 14:59 Intake Total 400 1663 Output Total 600 2100 Balance -200 -437 Lab Results Last 24 Hours: Laboratory Results - last 24 hr 03/29/20 03/30/20 03/30/20 Range/Units 17:02 06:24 06:24 WBC 18.3 H (5.0-10.0) 10^3/uL RBC 3.48 L (4.2-5.4) 10^6/uL Hgb 10.5 L (12.0-16.0) g/dL Hct 31.6 L (37.0-47.0) % MCV 90.8 (80-100) fL MCH 30.2 (27.0-34.0) pg MCHC 33.2 (33.0-35.0) g/dL Plt Count 393 D (150-450) 10^3/uL Sodium 131 L 134 L (136-145) mmol/L Potassium 3.1 L 3.5 (3.5-5.1) mmol/L Chloride 96 L 95 L (98-107) mmol/L Carbon Dioxide 32 34 H (21-32) mmol/L Anion Gap 6.1 L 8.5 (7-13) mEq/L BUN 6 L 4 L (7-18) mg/dL Creatinine 0.52 L 0.54 L (0.55-1.02) mg/dL Est Cr Clr Drug Dosing 145.50 140.11 mL/min Estimated GFR (MDRD) > 60 > 60 Glucose 106 H 97 (74-99) mg/dL Calcium 8.3 L 8.5 (8.5-10.1) mg/dL Asher Results Last 24 Hours: Microbiology 03/25/20 12:13 Aerobic Blood Culture - Preliminary Blood - Venous - Lab Draw NO GROWTH AFTER 4 DAYS Anaerobic Blood Culture - Preliminary 03/25/20 11:39 Aerobic Blood Culture - Preliminary Blood - Venous NO GROWTH AFTER 4 DAYS Anaerobic Blood Culture - Preliminary 03/27/20 11:05 Aerobic Blood Culture - Preliminary Blood - Venous - Lab Draw NO GROWTH AFTER 2 DAYS Anaerobic Blood Culture - Preliminary NO GROWTH AFTER 2 DAYS 03/27/20 11:00 Aerobic Blood Culture - Preliminary Blood - Venous NO GROWTH AFTER 2 DAYS Anaerobic Blood Culture - Preliminary NO GROWTH AFTER 2 DAYS Med Orders - Current: Current Medications Acetaminophen (Tylenol) 650 mg PO Q4H PRN PRN Reason: Pain (Mild 1-3)/fever Last Admin: 03/30/20 08:02 Dose: 650 mg Documented by: Aspirin (Aspirin) 81 mg PO DAILY [facility] Last Admin: 03/30/20 08:02 Dose: 81 mg Documented by: Ergocalciferol (Vitamin D2) 1.25 mg PO DAILY [facility] Last Admin: 03/30/20 08:02 Dose: 1.25 mg Documented by: Piperacillin Sod/Tazobactam (Sod 3.375 gm/ Sodium Chloride) 100 mls @ 200 mls/hr IV Q6HR [facility] Last Admin: 03/30/20 05:12 Dose: 200 mls/hr Documented by: Sodium Chloride (Normal Saline) 1,000 mls @ 50 mls/hr IV ASDIRECTED [facility] Last Admin: 03/29/20 11:07 Dose: 50 mls/hr Documented by: Morphine Sulfate (Morphine) 2 mg IVPUSH Q4H PRN PRN Reason: Other Last Admin: 03/28/20 14:59 Dose: 2 mg Documented by: Ondansetron HCl (Zofran) 4 mg IVPUSH Q6H PRN PRN Reason: Nausea/Vomiting Last Admin: 03/27/20 17:44 Dose: 4 mg Documented by: Ondansetron HCl (Zofran Odt) 4 mg PO Q6H PRN PRN Reason: nausea, able to take PO Last Admin: 03/29/20 13:09 Dose: 4 mg Documented by: Oxycodone HCl (Oxycodone) 5 mg PO Q4H PRN PRN Reason: Pain (severe 7-10) Last Admin: 03/30/20 05:11 Dose: 5 mg Documented by: Pantoprazole Sodium (Protonix) 40 mg PO ACBREAKFAST [facility] Last Admin: 03/30/20 05:12 Dose: 40 mg Documented by: Pregabalin (Lyrica) 150 mg PO BEDTIME [facility] Last Admin: 03/29/20 21:02 Dose: 150 mg Documented by: Senna/Docusate Sodium (Senna Plus) 1 tab PO BEDTIME [facility] Last Admin: 03/29/20 21:02 Dose: 1 tab Documented by: Sodium Chloride (Saline Flush) 10 ml FLUSH ASDIRECTED PRN PRN Reason: Keep Vein Open Last Admin: 03/25/20 23:56 Dose: 10 ml Documented by: Discontinued Medications Barium Sulfate (Readi-Cat 2) 900 ml PO ONETIME ONE Stop: 03/30/20 09:15 Last Admin: 03/30/20 09:35 Dose: 900 ml Documented by: Fentanyl (Sublimaze) 100 mcg IVPUSH ONETIME ONE Stop: 03/25/20 11:36 Last Admin: 03/25/20 11:45 Dose: 100 mcg Documented by: Fentanyl (Sublimaze) 100 mcg IVPUSH ONETIME ONE Stop: 03/25/20 13:41 Last Admin: 03/25/20 13:48 Dose: 100 mcg Documented by: Fentanyl (Duragesic) 50 mcg TRDERM Q72H [facility] Last Admin: 03/28/20 15:05 Dose: 50 mcg Documented by: Furosemide (Lasix) 20 mg IVPUSH ONETIME ONE Stop: 03/28/20 10:16 Last Admin: 03/28/20 10:37 Dose: 20 mg Documented by: Heparin Sodium (Porcine) (Heparin Sodium) 5,000 units SUBCUT Q8HR [facility] Last Admin: 03/29/20 05:47 Dose: Not Given Documented by: Sodium Chloride (Normal Saline) 1,000 mls @ 999 mls/hr IV .BOLUS ONE Stop: 03/25/20 12:35 Last Admin: 03/25/20 11:40 Dose: 999 mls/hr Documented by: Piperacillin Sod/Tazobactam (Sod 3.375 gm/ Sodium Chloride) 100 mls @ 200 mls/hr IV ONETIME ONE Stop: 03/25/20 13:47 Last Admin: 03/25/20 13:34 Dose: 200 mls/hr Documented by: Sodium Chloride (Normal Saline) 1,000 mls @ 300 mls/hr IV ASDIRECTED [facility] Last Admin: 03/25/20 13:36 Dose: 300 mls/hr Documented by: Potassium Chloride 10 meq/ (Premix) 100 mls @ 100 mls/hr IV Q1H [facility] Stop: 03/25/20 19:59 Last Infusion: 03/26/20 00:38 Dose: Infused Documented by: Sodium Chloride (Normal Saline) 1,000 mls @ 999 mls/hr IV .BOLUS ONE Stop: 03/25/20 19:17 Last Infusion: 03/25/20 21:16 Dose: Infused Documented by: Potassium Chloride 10 meq/ (Premix) 100 mls @ 100 mls/hr IV Q1H [facility] Stop: 03/25/20 23:59 Last Admin: 03/25/20 22:30 Dose: Not Given Documented by: Potassium Chloride 20 meq/ (Premix) 0 mls @ 50 mls/hr IV ONETIME ONE Stop: 03/29/20 10:28 Last Admin: 03/29/20 11:08 Dose: 50 mls/hr Documented by: Potassium Chloride (Kcl 20 Meq In Water 100 Ml) 100 mls @ 50 mls/hr IV Q2H [facility] Stop: 03/29/20 14:44 Last Infusion: 03/29/20 17:40 Dose: Infused Documented by: Potassium Chloride 20 meq/ (Premix) 0 mls @ 50 mls/hr IV ONETIME ONE Stop: 03/29/20 17:35 Last Admin: 03/29/20 22:27 Dose: Not Given Documented by: Potassium Chloride (Kcl 10 Meq In Water 100 Ml) 100 mls @ 100 mls/hr IV Q1H [facility] Stop: 03/29/20 21:44 Last Admin: 03/29/20 22:37 Dose: 100 mls/hr Documented by: Iopamidol (Isovue-300 (61%)) 100 ml IVPUSH ONETIME ONE Stop: 03/25/20 12:29 Last Admin: 03/25/20 13:01 Dose: 100 ml Documented by: Iopamidol (Isovue-300 (61%)) 100 ml IVPUSH ONETIME ONE Stop: 03/30/20 09:14 Loperamide HCl (Imodium) 2 mg PO Q6H PRN PRN Reason: Diarrhea Methylnaltrexone [place] (Relistor) 12 mg SUBCUT ONETIME ONE Stop: 03/25/20 13:52 Last Admin: 03/25/20 14:13 Dose: 12 mg Documented by: Metoclopramide HCl (Reglan) 10 mg IVPUSH ONETIME ONE Stop: 03/25/20 11:36 Last Admin: 03/25/20 11:45 Dose: 10 mg Documented by: Miscellaneous Information (Check Patch) 1 ea TRDERM Q12HR [facility] Stop: 03/30/20 00:30 Last Admin: 03/29/20 20:07 Dose: Not Given Documented by: Miscellaneous Information (Remove Patch) 1 ea TRDERM Q72H [facility] Last Admin: 03/28/20 15:05 Dose: 1 ea Documented by: Potassium Chloride (Klor-Con 10) 40 meq PO TIDMEALS [facility] Last Admin: 03/29/20 10:32 Dose: Not Given Documented by: Potassium Chloride (Klor-Con 10) 40 meq PO ONETIME ONE Stop: 03/29/20 10:35 Last Admin: 03/29/20 11:06 Dose: 40 meq Documented by: Tramadol HCl (Ultram) 50 mg PO Q6H PRN PRN Reason: Abdominal Pain Last Admin: 03/29/20 05:33 Dose: 50 mg Documented by: - Exam General: Alert, Oriented, Cooperative Neck: Supple Lungs: Clear to Auscultation, Normal Respiratory Effort Cardiovascular: Regular Rate, Regular Rhythm GI/Abdominal Exam: Tender (Tenderness of the suprapubic region. Significant bruising of the anterior abdominal wall) Extremities: Normal Inspection, Normal Range of Motion, Non-Tender, No Pedal Edema, Normal Capillary Refill Sepsis Event Note - Evaluation Sepsis Screening Result: No Definite Risk - Focused Exam Vital Signs: Vital Signs Temp Pulse Resp BP Pulse Ox 03/30/20 08:00 36.5 C 72 18 143/61 H 93 L 03/30/20 00:00 37.1 C 72 Date Exam was Performed: 03/30/20 Time Exam was Performed: 09:41 - Problem List Review Problem List Initiated/Reviewed/Updated: Yes - My Orders Last 24 Hours: My Active Orders 03/29/20 09:52 oxyCODONE 5 mg PO Q4H PRN 03/30/20 09:06 Abdomen Pelvis w Cont [CT] Routine - Plan Plan:: #Sepsis due to diverticulitis: Blood cultures positive with gram-negative rodsfull identity to follow #Acute diverticulitis CT abdomen showing sigmoid diverticulitis. No mention of perforation or abscess. IV fluids #Severe ileus: Resolved #Lactic acidosis: Resolved #Hypokalemia: Resolved #. Abdominal wall bruising Likely due to prophylactic anticoagulation heparin #. Status post right total knee arthroplasty Patient is to have surgical dressing in place Plan: Patient's white cell count is was treated at 18,000. I do not have an explanation for it. I would proceed to obtain a CT scan of the abdomen Obtain CT scan of the pelvis with oral and intravenous contrast Obtain repeat complete blood count Continue intravenous Zosyn Remove with surgical dressing
[2020-03-30] MEDS: Ondansetron 4 MG Tab.DIS PO PRN (10:24)
[2020-03-30] MEDS: Sodium Chloride 0.9% 1,000 ML IV SCH (10:25)
[2020-03-30] MEDS: Morphine 2 MG/ML Syringe IVPUSH PRN (10:41)
--- NOTE | 2020-03-30 12:29 | CT ---
PROCEDURE INFORMATION: Exam: CT Abdomen And Pelvis With Contrast Exam date and time: 03/30/2020 11:16 AM Age: 55 years old Clinical indication: Other: Abd pain/ diverticulitis; Prior surgery; Surgery date: 6+ months; Surgery type: Gallbladder; Additional info: Abd pain/diverticulitis TECHNIQUE: Imaging protocol: Computed tomography of the abdomen and pelvis with intravenous contrast. Radiation optimization: All CT scans at this facility use at least one of these dose optimization techniques: automated exposure control; mA and/or kV adjustment per patient size (includes targeted exams where dose is matched to clinical indication); or iterative reconstruction. Contrast material: ISOVUE 300; Contrast volume: 100 ml; Contrast route: INTRAVENOUS (IV); Other contrast: Oral, Readicat , 750; COMPARISON: CT Abdomen Pelvis w Cont 03/25/2020 12:45 PM FINDINGS: Pleural space: Very small right pleural effusion. Right lower lung consolidation. Liver: No mass. Gallbladder and bile ducts: Cholecystectomy. No ductal dilation. Pancreas: Normal. No ductal dilation. Spleen: Normal. No splenomegaly. Adrenals: Normal. No mass. Kidneys and ureters: Normal. No hydronephrosis. Stomach and bowel: Gastric band. Inflammatory change immediately adjacent to the proximal sigmoid colon where there is extraluminal gas. Retroperitoneal inflammation extends to the cecum which is poorly marginated, partially indistinguishable from the adjacent retroperitoneal inflammatory process. Appendix: No evidence of appendicitis. Intraperitoneal space: As below. Retroperitoneal space: Large amount of retroperitoneal gas, increased since 03/15/2020. Poorly marginated inflammatory mass/inflammation along with retroperitoneal gas in the lower abdomen and pelvis where there is also a focal fluid collection estimated at 4 cm. Retroperitoneal gas extends into the upper abdomen, no free intra-abdominal air. Vasculature: No abdominal aortic aneurysm. Lymph nodes: No significant adenopathy. Bladder: Unremarkable as visualized. Reproductive: Unremarkable as visualized. Bones/joints: No acute findings. Soft tissues: Unremarkable. IMPRESSION: Retroperitoneal abscess, perforated sigmoid diverticulitis. Colitis involving the sigmoid colon and probably the cecum. THIS REPORT CONTAINS FINDINGS THAT MAY BE CRITICAL TO PATIENT CARE. The findings were verbally communicated via telephone conference with HARISH ALFARO at 12:28 PM CDT on 03/30/2020. The findings were acknowledged and understood.
[2020-03-30 12:34] VITALS: BP 155/69; PULSE 64
[2020-03-30] MEDS ORDERED: HYDROmorphone 1 MG/ML Syringe IVPUSH ONE (12:40)
--- NOTE | 2020-03-30 12:51 | PCM.DCSUM1 ---
Discharge Summary - Hospital Course Free Text/Narrative:: Patient was admitted with acute diverticulitis. Was started on broad-spectrum antibiotics but failed to improve. She'll be transferred to a higher level of care. CT scan of the abdomen showed large pelvic abscess as a result of diverticulitis #Sepsis due to diverticulitis: Blood cultures positive with gram-negative rodsfull identity to follow #Acute diverticulitis CT abdomen showing sigmoid diverticulitis. No mention of perforation or abscess. IV fluids #Severe ileus: Resolved #Lactic acidosis: Resolved #Hypokalemia: Resolved #. Abdominal wall bruising Likely due to prophylactic anticoagulation heparin #. Status post right total knee arthroplasty Patient is to have surgical dressing in place Plan: Patient's white cell count is was treated at 18,000. I do not have an explanation for it. I would proceed to obtain a CT scan of the abdomen Obtain CT scan of the pelvis with oral and intravenous contrast Obtain repeat complete blood count Continue intravenous Zosyn Remove with surgical dressing Diagnosis: Stroke: No - Discharge Data Discharge Date: 03/30/20 Discharge Disposition: DC/Tfer to Acute Hospital 02 Condition: Good - Referral to Home Health Primary Care Physician: PCP None - Discharge Plan *PRESCRIPTION DRUG MONITORING PROGRAM REVIEWED*: No *COPY OF PRESCRIPTION DRUG MONITORING REPORT IN PATIENT SHEL[place]: No Home Medications: Home Meds traMADol HCl [Tramadol HCl] 1 tab PO Q4H PRN 01/29/16 [History] Acetaminophen [Tylenol Extra Strength] 500 mg PO Q6HR PRN 03/25/20 [History] Aspirin [Christian Chewable] 81 mg PO DAILY 03/25/20 [History] Celecoxib 200 mg PO DAILY 03/25/20 [History] Docusate Sodium 100 mg PO BID 03/25/20 [History] Ergocalciferol (Vitamin D2) [Vitamin D2] 50,000 unit PO MO@0900 03/25/20 [History] Ondansetron [Zofran] 8 mg PO Q8H PRN 03/25/20 [History] Pregabalin 150 mg PO BEDTIME 03/25/20 [History] oxyCODONE 5 mg PO Q4H PRN 03/25/20 [History] Forms: ED Department Discharge Referrals: PCP,None [Primary Care Provider] - - Discharge Summary/Plan Comment DC Time >30 min.: No - Review of Systems General: Reports: Weakness Pulmonary: Reports: No Symptoms Cardiovascular: Reports: No Symptoms Gastrointestinal: Reports: Abdominal Pain, Decreased Appetite Genitourinary: Reports: No Symptoms Musculoskeletal: Reports: No Symptoms - Patient Data Vitals - Most Recent: Last Vital Signs Temp 36.5 C 03/30/20 12:00 Pulse 64 03/30/20 12:00 Resp 18 03/30/20 12:00 BP 155/69 H 03/30/20 12:00 Pulse Ox 93 L 03/30/20 12:00 Weight - Most Recent: 126.325 kg I&O - Last 24 hours: Intake & Output 03/29/20 03/30/20 03/30/20 22:59 06:59 14:59 Intake Total 400 1663 400 Output Total 600 2100 1220 Balance -200 -437 -820 Lab Results - Last 24 hrs: Laboratory Results - last 24 hr 03/29/20 03/30/20 03/30/20 Range/Units 17:02 06:24 06:24 WBC 18.3 H (5.0-10.0) 10^3/uL RBC 3.48 L (4.2-5.4) 10^6/uL Hgb 10.5 L (12.0-16.0) g/dL Hct 31.6 L (37.0-47.0) % MCV 90.8 (80-100) fL MCH 30.2 (27.0-34.0) pg MCHC 33.2 (33.0-35.0) g/dL Plt Count 393 D (150-450) 10^3/uL Sodium 131 L 134 L (136-145) mmol/L Potassium 3.1 L 3.5 (3.5-5.1) mmol/L Chloride 96 L 95 L (98-107) mmol/L Carbon Dioxide 32 34 H (21-32) mmol/L Anion Gap 6.1 L 8.5 (7-13) mEq/L BUN 6 L 4 L (7-18) mg/dL Creatinine 0.52 L 0.54 L (0.55-1.02) mg/dL Est Cr Clr Drug Dosing 145.50 140.11 mL/min Estimated GFR (MDRD) > 60 > 60 Glucose 106 H 97 (74-99) mg/dL Calcium 8.3 L 8.5 (8.5-10.1) mg/dL JEREMY Results - Last 24 hrs: Microbiology 03/25/20 12:13 Aerobic Blood Culture - Final Blood - Venous - Lab Draw NO GROWTH AFTER 5 DAYS Anaerobic Blood Culture - Preliminary 03/25/20 11:39 Aerobic Blood Culture - Final Blood - Venous NO GROWTH AFTER 5 DAYS Anaerobic Blood Culture - Preliminary 03/27/20 11:05 Aerobic Blood Culture - Preliminary Blood - Venous - Lab Draw NO GROWTH AFTER 3 DAYS Anaerobic Blood Culture - Preliminary NO GROWTH AFTER 3 DAYS 03/27/20 11:00 Aerobic Blood Culture - Preliminary Blood - Venous NO GROWTH AFTER 3 DAYS Anaerobic Blood Culture - Preliminary NO GROWTH AFTER 3 DAYS 03/25/20 12:13 Bacterial Identification - Preliminary Blood Gram Negative Rods Med Orders - Current: Current Medications Acetaminophen (Tylenol) 650 mg PO Q4H PRN PRN Reason: Pain (Mild 1-3)/fever Last Admin: 03/30/20 08:02 Dose: 650 mg Documented by: Aspirin (Aspirin) 81 mg PO DAILY [facility] Last Admin: 03/30/20 08:02 Dose: 81 mg Documented by: Ergocalciferol (Vitamin D2) 1.25 mg PO DAILY [facility] Last Admin: 03/30/20 08:02 Dose: 1.25 mg Documented by: Piperacillin Sod/Tazobactam (Sod 3.375 gm/ Sodium Chloride) 100 mls @ 200 m ls/hr IV Q6HR [facility] Last Admin: 03/30/20 11:54 Dose: 200 mls/hr Documented by: Sodium Chloride (Normal Saline) 1,000 mls @ 50 mls/hr IV ASDIRECTED [facility] Last Admin: 03/30/20 10:25 Dose: 50 mls/hr Documented by: Morphine Sulfate (Morphine) 2 mg IVPUSH Q4H PRN PRN Reason: Other Last Admin: 03/30/20 10:41 Dose: 2 mg Documented by: Ondansetron HCl (Zofran) 4 mg IVPUSH Q6H PRN PRN Reason: Nausea/Vomiting Last Admin: 03/27/20 17:44 Dose: 4 mg Documented by: Ondansetron HCl (Zofran Odt) 4 mg PO Q6H PRN PRN Reason: nausea, able to take PO Last Admin: 03/30/20 10:24 Dose: 4 mg Documented by: Oxycodone HCl (Oxycodone) 5 mg PO Q4H PRN PRN Reason: Pain (severe 7-10) Last Admin: 03/30/20 10:24 Dose: 5 mg Documented by: Pantoprazole Sodium (Protonix) 40 mg PO ACBREAKFAST [facility] Last Admin: 03/30/20 05:12 Dose: 40 mg Documented by: Pregabalin (Lyrica) 150 mg PO BEDTIME [facility] Last Admin: 03/29/20 21:02 Dose: 150 mg Documented by: Senna/Docusate Sodium (Senna Plus) 1 tab PO BEDTIME [facility] Last Admin: 03/29/20 21:02 Dose: 1 tab Documented by: Sodium Chloride (Saline Flush) 10 ml FLUSH ASDIRECTED PRN PRN Reason: Keep Vein Open Last Admin: 03/25/20 23:56 Dose: 10 ml Documented by: Discontinued Medications Barium Sulfate (Readi-Cat 2) 900 ml PO ONETIME ONE Stop: 03/30/20 09:15 Last Admin: 03/30/20 09:35 Dose: 900 ml Documented by: Fentanyl (Sublimaze) 100 mcg IVPUSH ONETIME ONE Stop: 03/25/20 11:36 Last Admin: 03/25/20 11:45 Dose: 100 mcg Documented by: Fentanyl (Sublimaze) 100 mcg IVPUSH ONETIME ONE Stop: 03/25/20 13:41 Last Admin: 03/25/20 13:48 Dose: 100 mcg Documented by: Fentanyl (Duragesic) 50 mcg TRDERM Q72H [facility] Last Admin: 03/28/20 15:05 Dose: 50 mcg Documented by: Furosemide (Lasix) 20 mg IVPUSH ONETIME ONE Stop: 03/28/20 10:16 Last Admin: 03/28/20 10:37 Dose: 20 mg Documented by: Heparin Sodium (Porcine) (Heparin Sodium) 5,000 units SUBCUT Q8HR [facility] Last Admin: 03/29/20 05:47 Dose: Not Given Documented by: Hydromorphone HCl (Dilaudid) 1 mg IVPUSH ONETIME ONE Stop: 03/30/20 12:41 Sodium Chloride (Normal Saline) 1,000 mls @ 999 mls/hr IV .BOLUS ONE Stop: 03/25/20 12:35 Last Admin: 03/25/20 11:40 Dose: 999 mls/hr Documented by: Piperacillin Sod/Tazobactam (Sod 3.375 gm/ Sodium Chloride) 100 mls @ 200 mls/hr IV ONETIME ONE Stop: 03/25/20 13:47 Last Admin: 03/25/20 13:34 Dose: 200 mls/hr Documented by: Sodium Chloride (Normal Saline) 1,000 mls @ 300 mls/hr IV ASDIRECTED [facility] Last Admin: 03/25/20 13:36 Dose: 300 mls/hr Documented by: Potassium Chloride 10 meq/ (Premix) 100 mls @ 100 mls/hr IV Q1H [facility] Stop: 03/25/20 19:59 Last Infusion: 03/26/20 00:38 Dose: Infused Documented by: Sodium Chloride (Normal Saline) 1,000 mls @ 999 mls/hr IV .BOLUS ONE Stop: 03/25/20 19:17 Last Infusion: 03/25/20 21:16 Dose: Infused Documented by: Potassium Chloride 10 meq/ (Premix) 100 mls @ 100 mls/hr IV Q1H [facility] Stop: 03/25/20 23:59 Last Admin: 03/25/20 22:30 Dose: Not Given Documented by: Potassium Chloride 20 meq/ (Premix) 0 mls @ 50 mls/hr IV ONETIME ONE Stop: 03/29/20 10:28 Last Admin: 03/29/20 11:08 Dose: 50 mls/hr Documented by: Potassium Chloride (Kcl 20 Meq In Water 100 Ml) 100 mls @ 50 mls/hr IV Q2H [facility] Stop: 03/29/20 14:44 Last Infusion: 03/29/20 17:40 Dose: Infused Documented by: Potassium Chloride 20 meq/ (Premix) 0 mls @ 50 mls/hr IV ONETIME ONE Stop: 03/29/20 17:35 Last Admin: 03/29/20 22:27 Dose: Not Given Documented by: Potassium Chloride (Kcl 10 Meq In Water 100 Ml) 100 mls @ 100 mls/hr IV Q1H [facility] Stop: 03/29/20 21:44 Last Admin: 03/29/20 22:37 Dose: 100 mls/hr Documented by: Iopamidol (Isovue-300 (61%)) 100 ml IVPUSH ONETIME ONE Stop: 03/25/20 12:29 Last Admin: 03/25/20 13:01 Dose: 100 ml Documented by: Iopamidol (Isovue-300 (61%)) 100 ml IVPUSH ONETIME ONE Stop: 03/30/20 09:14 Last Admin: 03/30/20 11:37 Dose: 100 ml Documented by: Loperamide HCl (Imodium) 2 mg PO Q6H PRN PRN Reason: Diarrhea Methylnaltrexone [place] (Relistor) 12 mg SUBCUT ONETIME ONE Stop: 03/25/20 13:52 Last Admin: 03/25/20 14:13 Dose: 12 mg Documented by: Metoclopramide HCl (Reglan) 10 mg IVPUSH ONETIME ONE Stop: 03/25/20 11:36 Last Admin: 03/25/20 11:45 Dose: 10 mg Documented by: Miscellaneous Information (Check Patch) 1 ea TRDERM Q12HR [facility] Stop: 03/30/20 00:30 Last Admin: 03/29/20 20:07 Dose: Not Given Documented by: Miscellaneous Information (Remove Patch) 1 ea TRDERM Q72H [facility] Last Admin: 03/28/20 15:05 Dose: 1 ea Documented by: Potassium Chloride (Klor-Con 10) 40 meq PO TIDMEALS [facility] Last Admin: 03/29/20 10:32 Dose: Not Given Documented by: Potassium Chloride (Klor-Con 10) 40 meq PO ONETIME ONE Stop: 03/29/20 10:35 Last Admin: 03/29/20 11:06 Dose: 40 meq Documented by: Tramadol HCl (Ultram) 50 mg PO Q6H PRN PRN Reason: Abdominal Pain Last Admin: 03/29/20 05:33 Dose: 50 mg Documented by: - Exam General: Reports: Alert, Oriented, Cooperative Neck: Reports: Supple Lungs: Reports: Clear to Auscultation, Normal Respiratory Effort GI/Abdominal Exam: Normal Bowel Sounds, Soft, No Organomegaly, No Distention, No Abnormal Bruit, No Mass, Tender (Female) Exam: Normal External Exam, Normal Speculum Exam, Normal Bimanual Exam
== END 2020-03-30 13:21 | DRG 720 ==
LOC: DL.ED 11:14 → EEVIPCON 13:51 → DL.MS 13:51
PROVIDERS: ADMIT Internal Medicine; ATTEND Hospitalist
DX: A41.50 Gram-negative sepsis, unspecified (principal); K57.32 Diverticulitis of large intestine without perforation or abscess without bleeding; K56.7 Ileus, unspecified; E87.6 Hypokalemia; E66.9 Obesity, unspecified; E87.2 Acidosis; M79.81 Nontraumatic hematoma of soft tissue; Z88.5 Allergy status to narcotic agent; Z79.82 Long term (current) use of aspirin; Z79.899 Other long term (current) drug therapy; Z90.49 Acquired absence of other specified parts of digestive tract; Z28.82 Immunization not carried out because of caregiver refusal; Z68.36 Body mass index [BMI] 36.0-36.9, adult
CPT/HCPCS: 36415; 74177; 80048; 80053; 80076; 81001; 83605; 83735; 84100; 85025; 85027; 87040; 87077; 94010; 96361; 96365; 96375; 96376; 99285-25; A9270-GY; J1170; J1644; J1940; J2212; J2270; J2405; J2543; J2765; J3010; J3480; J7030; J7050; Q9967

== ENCOUNTER 2021-01-01 10:43 | Emergency (ER) | payer BC, OTHER ==
[2021-01-01 10:49] VITALS: BP 128/84; PULSE 78
--- NOTE | 2021-01-01 10:56 | EDM.PDOC ---
ED HPI GENERAL MEDICAL PROBLEM - General Chief Complaint: Abdominal Pain Stated Complaint: UNKNOWN Time Seen by Provider: 01/01/21 10:40 Source of Information: Reports: Patient, EMS History Limitations: Reports: No Limitations - History of Present Illness INITIAL COMMENTS - FREE TEXT/NARRATIVE: This 55 yo female patient was brought to the ED by [facility] due to 1) hives that began yesterday, 2) vomiting (2 episodes today), and 3) diffuse abdominal pain. The patient reports she got out of [facility] on Tuesday after having abdominal surgery. The patient reports her surgery was on 12/17/20 for a takedown which was unsuccessful. The patient reports she was feeling fine on Tuesday (day of discharge), felt decent on Tuesday during the day, Tuesday evening the patient reports she was "not feeling up to it", so she went to bed early. The patient reports she was not able to eat on Tuesday which lead to her current symptoms. The patient reports she has not attempted to contact Dr. Mukherjee (Surgeon with [facility] in [place]). The patient does have an ileostomy due to recent surgery. The patient reports all of her complications started about 1 year ago with a 100 pound weight loss, leading to a bowel obstruction and sepsis. Onset: Gradual Duration: Day(s):, Constant, Getting Worse Location: Reports: Abdomen Quality: Reports: Ache Severity: Mild Improves with: Reports: None Worsens with: Reports: None Context: Reports: Other Associated Symptoms: Reports: No Other Symptoms Abdomen Pain Score (Numeric/FACES): 8 - Related Data Allergies Allergy/AdvReac Type Severity Reaction Status Date / Time codeine Allergy Nausea and Verified 01/01/21 10:43 Vomiting Home Meds: Home Meds Acetaminophen [Tylenol Extra Strength] 500 mg PO Q6HR PRN 03/25/20 [History] oxyCODONE 5 mg PO Q4H PRN 03/25/20 [History] Amoxicillin/Potassium Clav [Amox-Clav 875-125 mg Tablet] 1 tab PO BID 01/01/21 [History] Past Medical History HEENT History: Reports: None Cardiovascular History: Reports: Other (See Below) Other Cardiovascular History: Borderline high blood pressure. 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 Open Reduc-ankle dislocation. Carpal tunnel release Neurological History: Reports: None Psychiatric History: Reports: None Endocrine/Metabolic History: Reports: Obesity/BMI 30+, Other (See Below) Other Endocrine/Metabolic History: Impaired fasting glucose Hematologic History: Reports: None Immunologic History: Reports: None Oncologic (Cancer) History: Reports: None Dermatologic History: Reports: None - Infectious Disease History Infectious Disease History: Reports: Other (See Below) Other Infectious Disease History: SOME KIND OF HEPATITIS - Past Surgical History GI Surgical History: Reports: Cholecystectomy, Colonoscopy, Other (See Below) Social & Family History - Family History Family Medical History: No Pertinent Family History - Caffeine Use Caffeine Use: Reports: None ED ROS GENERAL - Review of Systems Review Of Systems: Comprehensive ROS is negative, except as noted in HPI. ED EXAM, GI/ABD - Physical Exam Exam: See Below Exam Limited By: No Limitations General Appearance: Alert, WD/WN, Moderate Distress Eyes: Bilateral: Normal Appearance, EOMI Ears: Normal External Exam, Normal Canal, Hearing Grossly Normal, Normal TMs Nose: Normal Inspection, Normal Mucosa, No Blood Throat/Mouth: Normal Inspection, Normal Lips, Normal Teeth, Normal Gums, Normal Oropharynx, Normal Voice, No Airway Compromise Head: Atraumatic, Normocephalic Neck: Normal Inspection, Supple, Non-Tender, Full Range of Motion Respiratory/Chest: No Respiratory Distress, Lungs Clear, Normal Breath Sounds, No Accessory Muscle Use, Chest Non-Tender Cardiovascular: Normal Peripheral Pulses, Regular Rate, Rhythm, No Edema, No Gallop, No JVD, No Murmur, No Rub GI/Abdominal Exam: Guarding, Tender (Female) Exam: Normal External Exam, Normal Speculum Exam, Normal Bimanual Exam Rectal (Female) Exam: Normal Exam, Normal Rectal Tone Back Exam: Normal Inspection, Full Range of Motion, NT Extremities: Normal Inspection, Normal Range of Motion, Non-Tender, Normal Capillary Refill, No Pedal Edema Neurological: Alert, Oriented, CN II-XII Intact, Normal Cognition, Normal Gait, Normal Reflexes, No Motor/Sensory Deficits Psychiatric: Normal Affect, Normal Mood Skin Exam: Warm, Dry, Intact, Normal Color, No Rash Lymphatic: No Adenopathy Course - Vital Signs Last Recorded V/S: Last Vital Signs Temp 35.9 C L 01/01/21 10:48 Pulse 78 01/01/21 10:48 Resp 16 01/01/21 10:48 BP 128/84 01/01/21 10:48 Pulse Ox 93 L 01/01/21 10:48 - Orders/Labs/Meds Orders: Active Orders 24 hr Category Date Time Status CULTURE BLOOD [BC] Stat Lab 01/01/21 10:45 Ordered DRUG SCREEN URINE BIORAD [URCHEM] Stat Lab 01/01/21 10:45 Ordered UA RFX JEREMY AND CULT IF INDIC [URIN] Urgent Lab 01/01/21 10:45 Ordered Piperacillin/Tazobactam [Zosyn] 3.375 gm Med 01/01/21 13:16 Ordered Sodium Chloride 0.9% [Normal Saline] 100 ml IV ONETIME Medication Orders Piperacillin Sod/Tazobactam (Sod 3.375 gm/ Sodium Chloride) 100 mls @ 200 mls/hr IV ONETIME ONE Stop: 01/01/21 13:45 Labs: Laboratory Tests 01/01/21 01/01/21 01/01/21 Range/Units 10:55 10:55 10:55 WBC 18.8 H (5.0-10.0) 10^3/uL RBC 4.25 (4.2-5.4) 10^6/uL Hgb 13.1 D (12.0-16.0) g/dL Hct 38.6 (37.0-47.0) % MCV 90.8 (80-100) fL MCH 30.8 (27.0-34.0) pg MCHC 33.9 (33.0-35.0) g/dL Plt Count 775 H D (150-450) 10^3/uL Neut % (Auto) 84.9 H (42.2-75.2) % Lymph % (Auto) 9.4 L (20.5-50.1) % [place] % (Auto) 5.2 (2-8) % Eos % (Auto) 0.3 L (1.0-3.0) % Baso % (Auto) 0.2 (0.0-1.0) % Add Manual Diff Yes Neutrophils % (Manual) 86 H (42-75) % Lymphocytes % (Manual) 4 L (20-50) % Atypical Lymphs % 3 % Monocytes % (Manual) 7 (2-8) % Sodium 137 (136-145) mmol/L Potassium 4.4 (3.5-5.1) mmol/L Chloride 101 (98-107) mmol/L Carbon Dioxide 25 (21-32) mmol/L Anion Gap 15.4 H (7-13) mEq/L BUN 14 (7-18) mg/dL Creatinine 0.87 (0.55-1.02) mg/dL Est Cr Clr Drug Dosing TNP Estimated GFR (MDRD) > 60 BUN/Creatinine Ratio 16.1 (No establ ref range) Glucose 133 H (74-99) mg/dL Lactic Acid 1.5 (0.4-2.0) mmol/L Calcium 9.1 (8.5-10.1) mg/dL Total Bilirubin 0.7 (0.2-1.0) mg/dL AST 15 (15-37) U/L ALT 21 (14-59) U/L Alkaline Phosphatase 104 (46-116) U/L Total Protein 7.0 (6.4-8.2) g/dL Albumin 3.0 L (3.4-5.0) g/dL Globulin 4.0 Albumin/Globulin Ratio 0.75 Meds: Medications Generic Name Dose Route Start Last Admin Trade Name Freq PRN Reason Stop Dose Admin Piperacillin Sod/Tazobactam 100 mls @ 200 mls/hr 01/01/21 13:16 Sod 3.375 gm/ Sodium Chloride IV 01/01/21 13:45 ONETIME ONE Discontinued Medications Generic Name Dose Route Start Last Admin Trade Name Freq PRN Reason Stop Dose Admin Diphenhydramine HCl 50 mg 01/01/21 12:12 01/01/21 12:16 Diphenhydramine 50 Mg/Ml Sdv IVPUSH 01/01/21 12:13 50 mg ONETIME ONE Administration Iopamidol 100 ml 01/01/21 11:29 01/01/21 12:09 Iopamidol 612 Mg/Ml 100 Ml Bottle IVPUSH 01/01/21 11:30 100 ml ONETIME ONE Administration - Re-Assessments/Exams Free Text/Narrative Re-Assessment/Exam: 01/01/21 11:36 The patient was advised of the lab results and of the order for a CT. Departure - Departure Time of Disposition: 13:23 Disposition: DC/Tfer to Acute Hospital 02 Condition: Fair Clinical Impression: Abdominal infection - Discharge Information *PRESCRIPTION DRUG MONITORING PROGRAM REVIEWED*: Not Applicable *COPY OF PRESCRIPTION DRUG MONITORING REPORT IN PATIENT SHELBY: Not Applicable Forms: Interfacility Transfer EMTALA Care Plan Goals: Discussed the patient's history, examination, lab and CT results with Dr. Gallagher (Surgery). Dr. Gallagher accepted the patient for continued evaluation and management as an inpatient at [facility] in [place]. The patient will be transported by [facility]. Sepsis Event Note (ED) - Focused Exam Vital Signs: Vital Signs Temp Pulse Resp BP Pulse Ox 01/01/21 10:48 35.9 C L 78 16 128/84 93 L - My Orders Last 24 Hours: My Active Orders 01/01/21 10:45 CULTURE BLOOD [BC] Stat DRUG SCREEN URINE BIORAD [URCHEM] Stat UA RFX JEREMY AND CULT IF INDIC [URIN] Urgent 01/01/21 13:16 Piperacillin/Tazobactam [Zosyn] 3.375 gm Sodium Chloride 0.9% [Normal Saline] 100 ml IV ONETIME - Assessment/Plan Last 24 Hours: My Active Orders 01/01/21 10:45 CULTURE BLOOD [BC] Stat DRUG SCREEN URINE BIORAD [URCHEM] Stat UA RFX JEREMY AND CULT IF INDIC [URIN] Urgent 01/01/21 13:16 Piperacillin/Tazobactam [Zosyn] 3.375 gm Sodium Chloride 0.9% [Normal Saline] 100 ml IV ONETIME
[2021-01-01 11:21] LABS: ANION GAP 15.4 mEq/L (7-13); CHLORIDE,CL 101 mmol/L (98-107); SODIUM,NA 137 mmol/L (136-145)
[2021-01-01] MEDS ORDERED: Iopamidol 612 MG/ML 100 ML Bottle IVPUSH ONE (11:29)
[2021-01-01] MEDS ORDERED: diphenhydrAMINE 50 MG/ML SDV IVPUSH ONE (12:12)
--- NOTE | 2021-01-01 13:00 | CT ---
EXAMINATION: Abdomen Pelvis w Cont SEX: Female AGE: 55 years CLINICAL HISTORY: 55-year-old morbidly obese female complaining of abdominal pain (recent "diverticulitis, perforated, with retroperitoneal abscess" reported March 2020) and subsequent abdominal surgery (colostomy). Cholecystectomy and appendectomy. Smoker. Scan technique: Volume acquisition of data from the abdomen and pelvis obtained without oral contrast/barium but during/after intravenous administration 100 cc nonionic Isovue contrast at 2.5 cc/s via injector while patient was lying supine on the Siemens multislice scanner [place], [place]. All data archived in the PACS system for storage, reformatting axial/sagittal/coronal planes and study. Interpretation: 1. Ventral wall defect and ostomy right lower quadrant (RLQ) abdomen with adjacent IR drain tube located medially. 2. *Free fluid accumulated in the dependent cul-de-sac (pelvis). 3. Inflammatory "dirty" peritoneal fat in the right abdomen but no organized abscess. No abdominal or pelvic mass lesion. No mesenteric or retroperitoneal lymphadenopathy. No sign of mechanical bowel obstruction or free intraperitoneal air. 4. Liver, fluid-filled stomach, spleen, pancreas and adrenal glands anatomically correct and otherwise unremarkable. 5. Normal reniform size, axis and configuration bilaterally. No sign of renal cortical mass lesion, nephrolithiasis or obstructive uropathy. Small volume bladder unremarkable. Uterus and left ovary normal. Barium in the rectum. 6. Atelectasis posterior segment lower lobes. Normal cardiac silhouette. No pericardial or pleural effusions. 7. Normal caliber aortoiliac vessels. Osteopenia. Exaggerated lumbar lordosis. Hypertrophic spondylosis. No sign of pathologic skeletal lesion, lumbar fracture or dislocation (spondylolisthesis). CONCLUSION: Postoperative changes right side of the abdomen (colostomy and IR drainage). Pelvic fluid. No sign of abdominal malignancy, mechanical bowel obstruction or acute peritonitis.
[2021-01-01] MEDS ORDERED: Piperacillin/Tazobactam 3.375 GM in Sodium Chloride 0.9% 100 ML IV ONE (13:16)
[2021-01-01] MEDS ORDERED: Ondansetron 4 MG/2 ML SDV IVPUSH ONE (13:36)
[2021-01-01] MEDS ORDERED: HYDROmorphone 0.5 MG/0.5 ML Syringe IVPUSH ONE (13:48)
== END 2021-01-01 14:20 ==
LOC: DL.ED 10:43
DX: T81.49XA Infection following a procedure, other surgical site, initial encounter (principal)
CPT/HCPCS: 36415; 74177; 80053; 83605; 85025; 87040; 96365; 96375; 99284; 99285; J1170; J1200; J2405; J2543; Q9967

== ENCOUNTER 2021-01-13 11:25 | Emergency (ER) | payer BC, OTHER ==
[2021-01-13 11:42] VITALS: BP 133/95; PULSE 106
--- NOTE | 2021-01-13 11:43 | EDM.PDOC ---
ED HPI GENERAL MEDICAL PROBLEM - General Stated Complaint: INFUSION PORT BLOCKED/BROKEN Time Seen by Provider: 01/13/21 11:28 Source of Information: Reports: Patient History Limitations: Reports: No Limitations - History of Present Illness INITIAL COMMENTS - FREE TEXT/NARRATIVE: This 55 yo female patient reports to the ED due to her infusion port not flushing. The patient reports she did attempt to use the port this morning, but could not get fluids to flow through the port. ED nursing staff flushed both ports without difficulties upon patient presentation to the ED. The patient did not experience any pain after flushing. Onset: Today Duration: Other Location: Reports: Other Severity: Mild Improves with: Reports: None Worsens with: Reports: None Associated Symptoms: Reports: No Other Symptoms - Related Data Allergies Allergy/AdvReac Type Severity Reaction Status Date / Time codeine Allergy Nausea and Verified 01/01/21 10:43 Vomiting Home Meds: Home Meds Acetaminophen [Tylenol Extra Strength] 500 mg PO Q6HR PRN 03/25/20 [History] oxyCODONE 5 mg PO Q4H PRN 03/25/20 [History] Amoxicillin/Potassium Clav [Amox-Clav 875-125 mg Tablet] 1 tab PO BID 01/01/21 [History] Past Medical History HEENT History: Reports: None Cardiovascular History: Reports: Other (See Below) Other Cardiovascular History: Borderline high blood pressure. 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 Open Reduc-ankle dislocation. Carpal tunnel release Neurological History: Reports: None Psychiatric History: Reports: None Endocrine/Metabolic History: Reports: Obesity/BMI 30+, Other (See Below) Other Endocrine/Metabolic History: Impaired fasting glucose Hematologic History: Reports: None Immunologic History: Reports: None Oncologic (Cancer) History: Reports: None Dermatologic History: Reports: None - Infectious Disease History Infectious Disease History: Reports: Other (See Below) Other Infectious Disease History: SOME KIND OF HEPATITIS - Past Surgical History GI Surgical History: Reports: Cholecystectomy, Colonoscopy, Other (See Below) Social & Family History - Family History Family Medical History: No Pertinent Family History - Caffeine Use Caffeine Use: Reports: None ED ROS GENERAL - Review of Systems Review Of Systems: Comprehensive ROS is negative, except as noted in HPI. ED EXAM, GENERAL - Physical Exam Exam: See Below Exam Limited By: No Limitations General Appearance: Alert, WD/WN, No Apparent Distress Eye Exam: Bilateral Eye: EOMI, Normal Inspection, PERRL Ears: Normal External Exam, Normal Canal, Hearing Grossly Normal, Normal TMs Nose: Normal Inspection, Normal Mucosa, No Blood Throat/Mouth: Normal Inspection, Normal Lips, Normal Teeth, Normal Gums, Normal Oropharynx, Normal Voice, No Airway Compromise Head: Atraumatic, Normocephalic Neck: Normal Inspection, Supple, Non-Tender, Full Range of Motion Respiratory/Chest: No Respiratory Distress, Lungs Clear, Normal Breath Sounds, No Accessory Muscle Use, Chest Non-Tender Cardiovascular: Normal Peripheral Pulses, Regular Rate, Rhythm, No Edema, No Gallop, No JVD, No Murmur, No Rub Neurological: Alert, Oriented, CN II-XII Intact, Normal Cognition, Normal Gait, Normal Reflexes, No Motor/Sensory Deficits Psychiatric: Normal Affect, Normal Mood Skin Exam: Warm, Dry, Intact, Normal Color, No Rash Lymphatic: No Adenopathy Departure - Departure Time of Disposition: 11:40 Disposition: Home, Self-Care 01 Condition: Fair Clinical Impression: PICC (peripherally inserted central catheter) flush - Discharge Information *PRESCRIPTION DRUG MONITORING PROGRAM REVIEWED*: Not Applicable *COPY OF PRESCRIPTION DRUG MONITORING REPORT IN PATIENT SHELBY: Not Applicable Forms: ED Department Discharge Care Plan Goals: The patient was advised of the examination results during the visit. The patient's port flushed without difficulties while in the ED. If the patient has any additional symptoms or concerns, the patient should either return to the emergency department or follow-up with her specialists.
== END 2021-01-13 11:53 | disposition home or self-care (01) ==
LOC: DL.ED 11:25
DX: T82.594A Other mechanical complication of infusion catheter, initial encounter (principal); E66.9 Obesity, unspecified; Z68.31 Body mass index [BMI] 31.0-31.9, adult; Z68.35 Body mass index [BMI] 35.0-35.9, adult; Z88.5 Allergy status to narcotic agent
CPT/HCPCS: 99282; 99283

== ENCOUNTER 2021-01-17 20:23 | Emergency (ER) | payer BC, OTHER ==
[2021-01-17 20:49] VITALS: BP 121/75; PULSE 95
--- NOTE | 2021-01-17 21:56 | EDM.PDOC ---
ED HPI GENERAL MEDICAL PROBLEM - General Chief Complaint: Skin Complaint Stated Complaint: ILEOSTOMY BAG NOT SEALED, SKIN IRRITATION Time Seen by Provider: 01/17/21 20:45 Source of Information: Reports: Patient, RN, RN Notes Reviewed History Limitations: Reports: No Limitations - History of Present Illness INITIAL COMMENTS - FREE TEXT/NARRATIVE: Patient presents to the ED via personal vehicle with complaints of skin breakdown surrounding ileostomy. The patient reports she has had the ileostomy in place since 12/17/20 following a failed takedown for a colostomy. She notes she changes to whole bag multiple times a day due to leaking and skin breakdown since the ileostomy was placed. The patient states she does following with RACHAEL Zavala RN at [facility] in [place] for ongoing ileostomy management, but was unable to see him today. She denies fever, shaking chills, palpitations, nausea, or vomiting. She reports she has recently finished up Augmentin, Flagyl, and additional unknown antibiotics for abdominal abscess. The patient reports she has not used any additional products on her ileostomy site other than barrier powder, colostomy spray, and barrier ring. Right Lower Abdominal Pain Score (Numeric/FACES): 10 - Related Data Allergies Allergy/AdvReac Type Severity Reaction Status Date / Time amoxicillin Allergy Cannot Verified 01/17/21 20:40 Remember codeine Allergy Nausea and Verified 01/17/21 20:40 Vomiting morphine Allergy Cannot Verified 01/17/21 20:40 Remember Home Meds: Home Meds metroNIDAZOLE [Flagyl] 500 mg PO BID 01/17/21 [History] Past Medical History HEENT History: Reports: None Cardiovascular History: Reports: Other (See Below) Other Cardiovascular History: Borderline high blood pressure. 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 Open Reduc-ankle dislocation. Carpal tunnel release Neurological History: Reports: None Psychiatric History: Reports: None Endocrine/Metabolic History: Reports: Obesity/BMI 30+, Other (See Below) Other Endocrine/Metabolic History: Impaired fasting glucose Hematologic History: Reports: None Immunologic History: Reports: None Oncologic (Cancer) History: Reports: None Dermatologic History: Reports: None - Infectious Disease History Infectious Disease History: Reports: Other (See Below) Other Infectious Disease History: SOME KIND OF HEPATITIS - Past Surgical History Cardiovascular Surgical History: Reports: None GI Surgical History: Reports: Cholecystectomy, Colonoscopy, Colostomy, Other (See Below) Other GI Surgeries/Procedures: Hx of colon polyps (15yrs. ago). Lap Band. Illeostomy 12/17/20 Female Surgical History: Reports: LEEP Other Female Surgeries/Procedures: Vaginal cervical leep treatment. Social & Family History - Family History Family Medical History: No Pertinent Family History - Tobacco Use Tobacco Use Status *Q: Unknown Ever Used Tobacco - Caffeine Use Caffeine Use: Reports: Coffee - Recreational Drug Use Recreational Drug Use: No ED ROS GENERAL - Review of Systems Review Of Systems: Comprehensive ROS is negative, except as noted in HPI. ED EXAM, SKIN/RASH Exam: See Below Exam Limited By: No Limitations General Appearance: Alert, No Apparent Distress GI/Abdominal: Soft, No Distention, No Abnormal Bruit, No Mass, Pelvis Stable, Tender (Tenderness to skin surrounding ileosomty), Abnormal Bowel Sounds, Other (Ileostomy to right midquadrant; Maceration to skin on right-mid and right-lower quadrant) (Female) Exam: Deferred Rectal (Female) Exam: Deferred Back Exam: Normal Inspection, Full Range of Motion Extremities: Normal Inspection, Normal Range of Motion, Non-Tender, No Pedal Edema, Normal Capillary Refill Neurological: Alert, Oriented, CN II-XII Intact, Normal Cognition, Normal Gait, No Motor/Sensory Deficits Psychiatric: Normal Affect, Normal Mood Skin: Excoriations (To right-mid and right-lower quadrant), Wound/Incision (Maceration to skin surrounding ileostomy to right-mid and right-lower quadrant) Location, Skin: Abdomen Characteristics: Erythematous Associated features: Tenderness, Inflammation, Weeping Lymphatic: Adenopathy Course - Vital Signs Last Recorded V/S: Last Vital Signs Temp 99.6 F 01/17/21 20:41 Pulse 95 01/17/21 20:41 Resp 20 01/17/21 20:41 BP 121/75 01/17/21 20:41 Pulse Ox 98 01/17/21 20:41 - Re-Assessments/Exams Free Text/Narrative Re-Assessment/Exam: 01/17/21 Ileostomy bag changed; barrier cream applied. Discussed ongoing management of skin, including follow up with [facility] RN tomorrow as the patient states the WOC works over the weekend during the day. Patient verbalized understanding and agreement with the plan of care. Departure - Departure Time of Disposition: 21:52 Disposition: Home, Self-Care 01 Condition: Good Clinical Impression: Ileostomy bag changed, Ileostomy present, Skin breakdown, Maceration of skin - Discharge Information *PRESCRIPTION DRUG MONITORING PROGRAM REVIEWED*: Not Applicable *COPY OF PRESCRIPTION DRUG MONITORING REPORT IN PATIENT SHELBY: Not Applicable Referrals: Colin Pozo [Primary Care Provider] - Forms: ED Department Discharge Additional Instructions: 1.) Follow up with senior administrative assistant early tomorrow morning for further evaluation of ileostomy care. 2.) Keep sore skin open to air, as able. 3.) Continue to apply barrier cream to sore skin. Sepsis Event Note (ED) - Evaluation Sepsis Screening Result: No Definite Risk - Focused Exam Vital Signs: Vital Signs Temp Pulse Resp BP Pulse Ox 01/17/21 20:41 99.6 F 95 20 121/75 98
== END 2021-01-17 21:59 | disposition home or self-care (01) ==
LOC: DL.ED 20:23
DX: S30.811A Abrasion of abdominal wall, initial encounter (principal); E66.9 Obesity, unspecified; Z68.28 Body mass index [BMI] 28.0-28.9, adult; Z93.2 Ileostomy status; Z88.0 Allergy status to penicillin; Z88.5 Allergy status to narcotic agent; X58.XXXA Exposure to other specified factors, initial encounter
CPT/HCPCS: 99282; 99283

== ENCOUNTER 2021-07-22 14:25 | Emergency (ER) | payer BC, OTHER ==
[2021-07-22] MEDS: Sodium Chloride 0.9% 1,000 ML IV ONE (15:00)
[2021-07-22] MEDS: Famotidine 20 MG/2 ML SDV IVPUSH ONE (15:00)
[2021-07-22 15:08] LABS: ANION GAP 15.3 mEq/L (7-13); CHLORIDE,CL 107 mmol/L (98-107); SODIUM,NA 145 mmol/L (136-145)
[2021-07-22] MEDS: methylPREDNISolone Sodium Succinate 125 MG/2 ML SDV IVPUSH ONE (15:11)
[2021-07-22] MEDS: diphenhydrAMINE 50 MG/ML SDV IVPUSH ONE (15:11)
[2021-07-22 15:30] VITALS: BP 142/66; PULSE 88
--- NOTE | 2021-07-22 15:44 | EDM.PDOC ---
ED HPI GENERAL MEDICAL PROBLEM - General Chief Complaint: Allergic Reaction Stated Complaint: ALLERGIC REACTION ORANGE JUICE?? Time Seen by Provider: 07/22/21 14:40 Source of Information: Reports: Patient, RN, RN Notes Reviewed History Limitations: Reports: No Limitations - History of Present Illness INITIAL COMMENTS - FREE TEXT/NARRATIVE: Mel is a 56 y/o male who presents to the ED via personal vehicle with complaints of hives and circumoral swelling. The patient notes she feels as though she is experiencing an allergic reaction to the [place] drink she ingested around 1100 today. She reports her co-workers informed her of her facial swelling;she noted hives to her abdomen and extremities which prompted her to present to the ED. She denies vision changes, dizziness, throat tightness, tongue swelling, chest pain, palpitations, shortness of breath, or nausea. - Related Data Allergies Allergy/AdvReac Type Severity Reaction Status Date / Time amoxicillin Allergy Cannot Verified 01/17/21 20:40 Remember codeine Allergy Nausea and Verified 01/17/21 20:40 Vomiting morphine Allergy Cannot Verified 01/17/21 20:40 Remember Home Meds: Home Meds metroNIDAZOLE [Flagyl] 500 mg PO BID 01/17/21 [History] Past Medical History HEENT History: Reports: None Cardiovascular History: Reports: Other (See Below) Other Cardiovascular History: Borderline high blood pressure. 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 Open Reduc-ankle dislocation. Carpal tunnel release Neurological History: Reports: None Psychiatric History: Reports: None Endocrine/Metabolic History: Reports: Obesity/BMI 30+, Other (See Below) Other Endocrine/Metabolic History: Impaired fasting glucose Hematologic History: Reports: None Immunologic History: Reports: None Oncologic (Cancer) History: Reports: None Dermatologic History: Reports: None - Infectious Disease History Infectious Disease History: Reports: Other (See Below) Other Infectious Disease History: SOME KIND OF HEPATITIS - Past Surgical History Cardiovascular Surgical History: Reports: None GI Surgical History: Reports: Cholecystectomy, Colonoscopy, Colostomy, Other (See Below) Other GI Surgeries/Procedures: Hx of colon polyps (15yrs. ago). Lap Band. Illeostomy 12/17/20 Female Surgical History: Reports: LEEP Other Female Surgeries/Procedures: Vaginal cervical leep treatment. Social & Family History - Family History Family Medical History: No Pertinent Family History - Caffeine Use Caffeine Use: Reports: Coffee ED ROS ALLERGIC REACTION - Review of Systems Review Of Systems: Comprehensive ROS is negative, except as noted in HPI. ED EXAM GENERAL NO PERIP PULSE - Physical Exam Exam: See Below Exam Limited By: No Limitations General Appearance: Alert, No Apparent Distress Eye Exam: Bilateral Eye: EOMI, Normal Inspection, PERRL (3mm) Ears: Normal External Exam, Normal Canal, Hearing Grossly Normal, Normal TMs Nose: Normal Inspection, Normal Mucosa, No Blood Throat/Mouth: Normal Oropharynx, Normal Voice, No Airway Compromise. No: Normal Lips (Swelling to left upper lip, extending into left cheek), Inflammation Head: Atraumatic, Normocephalic Neck: Normal Inspection, Supple, Non-Tender, Full Range of Motion. No: Lymphadenopathy (L), Lymphadenopathy (R) Respiratory/Chest: No Respiratory Distress, Lungs Clear, Normal Breath Sounds, No Accessory Muscle Use, Chest Non-Tender. No: Crackles, Rales, Rhonchi, Wheezing, Stridor Cardiovascular: Normal Peripheral Pulses, Regular Rate, Rhythm, No Gallop, No JVD, No Murmur, No Rub. No: No Edema GI/Abdominal: Normal Bowel Sounds, Soft, Non-Tender (Female) Exam: Deferred Rectal (Female) Exam: Deferred Back Exam: Normal Inspection, Full Range of Motion Extremities: Normal Capillary Refill, Pedal Edema (+1 non-pitting, bilaterally). No: Joint Swelling Neurological: Alert, Oriented, CN II-XII Intact, Normal Cognition, Normal Gait, No Motor/Sensory Deficits Psychiatric: Normal Affect, Normal Mood Skin Exam: Warm, Dry, Intact, Normal Color, No Rash. No: Cyanosis, Jaundice, Mottled, Pallor Course - Vital Signs Last Recorded V/S: Last Vital Signs Temp 98.1 F 07/22/21 14:30 Pulse 88 07/22/21 14:30 Resp 16 07/22/21 14:30 BP 142/66 H 07/22/21 14:30 Pulse Ox 99 07/22/21 14:30 - Orders/Labs/Meds Labs: Laboratory Tests 07/22/21 07/22/21 Range/Units 14:43 14:43 WBC 8.2 (5.0-10.0) 10^3/uL RBC 4.48 (4.2-5.4) 10^6/uL Hgb 13.5 (12.0-16.0) g/dL Hct 41.6 (37.0-47.0) % MCV 92.9 (80-100) fL MCH 30.1 (27.0-34.0) pg MCHC 32.5 L (33.0-35.0) g/dL Plt Count 277 D (150-450) 10^3/uL Neut % (Auto) 62.4 (42.2-75.2) % Lymph % (Auto) 28.7 (20.5-50.1) % [place] % (Auto) 7.2 (2-8) % Eos % (Auto) 1.5 (1.0-3.0) % Baso % (Auto) 0.2 (0.0-1.0) % Sodium 145 (136-145) mmol/L Potassium 4.3 (3.5-5.1) mmol/L Chloride 107 (98-107) mmol/L Carbon Dioxide 27 (21-32) mmol/L Anion Gap 15.3 H (7-13) mEq/L BUN 18 (7-18) mg/dL Creatinine 0.96 (0.55-1.02) mg/dL Est Cr Clr Drug Dosing TNP Estimated GFR (MDRD) > 60 BUN/Creatinine Ratio 18.8 (No establ ref range) Glucose 86 (70-99) mg/dL Calcium 9.1 (8.5-10.1) mg/dL Total Bilirubin 0.9 (0.2-1.0) mg/dL AST 19 (15-37) U/L ALT 18 (14-59) U/L Alkaline Phosphatase 91 (46-116) U/L C-Reactive Protein < 0.2 (0.0-0.9) mg/dL Total Protein 7.1 (6.4-8.2) g/dL Albumin 3.9 (3.4-5.0) g/dL Globulin 3.2 Albumin/Globulin Ratio 1.2 Meds: Medications Discontinued Medications Generic Name Dose Route Start Last Admin Trade Name Freq PRN Reason Stop Dose Admin Diphenhydramine HCl 50 mg 07/22/21 14:38 07/22/21 15:11 Diphenhydramine 50 Mg/Ml Sdv IVPUSH 07/22/21 14:39 50 mg ONETIME ONE Administration Famotidine 20 mg 07/22/21 14:38 07/22/21 15:00 Famotidine 20 Mg/2 Ml Sdv IVPUSH 07/22/21 14:39 20 mg ONETIME ONE Administration Sodium Chloride 1,000 mls @ 999 mls/hr 07/22/21 14:39 07/22/21 15:00 Normal Saline IV 07/22/21 15:39 999 mls/hr .BOLUS ONE Administration Methylprednisolone Sodium Succinate 125 mg 07/22/21 14:38 07/22/21 15:11 Methylprednisolone Sodium Succinate 125 Mg/2 Ml Sdv IVPUSH 07/22/21 14:39 125 mg ONETIME ONE Administration - Re-Assessments/Exams Free Text/Narrative Re-Assessment/Exam: 07/22/21 Solu-Medrol 125mg IVP, Benadryl 50mg IVP, Pepcid 20mg IVP, and NS 1L bolus administered. Facial swelling and hives greatly reduced following medication administration. Findings of examination and lab work reviewed with patient. Supportive cares for continued hives and itching discussed. Patient instructed to follow up with primary care provider in 3-5 regarding todays visit. Red flag signs and symptoms which would warrant immediate reevaluation reviewed. Patient verbalized understanding and agreement with the plan of care. Departure - Departure Time of Disposition: 15:51 Disposition: Home, Self-Care 01 Condition: Good Clinical Impression: Allergic reaction to food Qualifiers: Encounter type: initial encounter Qualified Code(s): T78.1XXA - Other adverse food reactions, not elsewhere classified, initial encounter - Discharge Information *PRESCRIPTION DRUG MONITORING PROGRAM REVIEWED*: Not Applicable *COPY OF PRESCRIPTION DRUG MONITORING REPORT IN PATIENT [place]: Not Applicable Instructions: Allergies, Adult Forms: ED Department Discharge Additional Instructions: 1.) You may take Benadryl 50mg twice a day, as itching and hives persist. 2.) Drink plenty of water to stay hydrated. 3.) Do not drink [place] again. 4.) Follow up with your primary care provider in 3-5 days regarding today's visit, or return to the emergency department with any return of symptoms. Sepsis Event Note (ED) - Evaluation Sepsis Screening Result: No Definite Risk - Focused Exam Vital Signs: Vital Signs Temp Pulse Resp BP Pulse Ox 07/22/21 14:30 98.1 F 88 16 142/66 H 99
== END 2021-07-22 16:20 | disposition home or self-care (01) ==
LOC: DL.ED 14:25
DX: T78.1XXA Other adverse food reactions, not elsewhere classified, initial encounter (principal); E66.9 Obesity, unspecified; Z88.0 Allergy status to penicillin; Z88.5 Allergy status to narcotic agent
CPT/HCPCS: 36415; 80053; 85025; 86140; 96374; 96375; 99283; J1200; J2930; J3490; J7030

== ENCOUNTER 2021-09-09 17:13 | Emergency (ER) | payer BC, OTHER | END 2021-09-09 18:58 | disposition left against medical advice (07) | LOC: DL.ED 17:13 | DX: Z53.21 Procedure and treatment not carried out due to patient leaving prior to being seen by health care provider (principal) ==

== ENCOUNTER 2023-04-05 04:55 | Emergency (ER) | payer BC, OTHER ==
[2023-04-05] MEDS ORDERED: Ondansetron 4 MG/2 ML SDV IVPUSH ONE ×2 (05:06→09:39)
[2023-04-05] MEDS ORDERED: Ketorolac 30 MG/ML SDV IVPUSH ONE (05:06)
[2023-04-05] MEDS ORDERED: Sodium Chloride 0.9% 10 ML Syringe FLUSH PRN (05:06)
[2023-04-05] MEDS ORDERED: fentaNYL 100 MCG/2 ML SDV IVPUSH ONE ×3 (05:11→09:50)
[2023-04-05 05:55] VITALS: BP 95/42; PULSE 53
[2023-04-05] MEDS ORDERED: Acetaminophen/oxyCODONE 325-5 MG Tab PO ONE (09:39)
== END 2023-04-05 10:32 | disposition home or self-care (01) ==
LOC: DL.ED 04:55
DX: S52.352A Displaced comminuted fracture of shaft of radius, left arm, initial encounter for closed fracture (principal); I10 Essential (primary) hypertension; E66.9 Obesity, unspecified; Z68.37 Body mass index [BMI] 37.0-37.9, adult; W19.XXXA Unspecified fall, initial encounter
CPT/HCPCS: 29125; 72100; 73100; 73110; 73610; 73630; 96374; 96375; 96376; 99283; 99284; J1885; J2405; J3010; J3490